=== PATIENT | male | born 1955 | race African-American/Black ===

== ENCOUNTER 2016-07-29 11:34 | Inpatient (IN) | payer SELFPAY ==
[~2016-07-29] VITALS: Ht 175.3 cm; Wt 81.6 kg
[2016-07-29] VITALS (8 sets, daily range): BP systolic 100–135; BP diastolic 42–79
--- NOTE | 2016-07-29 11:49 | Emergency Room Report ---
History of Present Illness General Chief Complaint: Seizure Source: Patient, EMS Present Illness HPI Patient just with reports of seizure activity He reports a loss when he had has been several months ago Patient is on lamictal This was witnessed by family patient lives at home with daughter At this time denies any headache denies any chest pressures of breath denies any back or flank pain Patient reports that he was drinking heavily last night Denies any other vomiting or diarrhea Denies any focal weakness Allergies: Coded Allergies: No Known Allergies (Unverified , 07/29/16) Patient History Past Medical History: see triage record Pertinent Family History: none Reviewed Nursing Documentation: PMH: Agreed, PSxH: Agreed Nursing Documentation-PMH Past Medical History: No History, Except For Hx Seizures: Yes Review of Systems All Other Systems: negative except mentioned in HPI Physical Exam Vital Signs Date Time Temp Pulse Resp B/P Pulse Ox O2 Delivery O2 Flow Rate FiO2 07/29/16 11:32 98.1 92 15 122/79 98 Room Air Sp02 EP Interpretation: reviewed, normal General Appearance: well appearing, no apparent distress Head: normocephalic, atraumatic Eyes: bilateral eye EOMI, bilateral eye PERRL ENT: hearing grossly normal, normal pharynx, TMs + canals normal, uvula midline , other - Small bites on the right aspect of the tongue Neck: full range of motion, supple, no meningismus, no bony tend Respiratory: lungs clear, normal breath sounds, no rhonchi, no respiratory distress, no retraction, no accessory muscle use Cardiovascular #1: normal peripheral pulses, regular rate, rhythm, no edema, no gallop, no JVD, no murmur Gastrointestinal: normal bowel sounds, non tender, soft, non-distended, no guarding, no hernia, no pulsatile mass, no rebound, hepatomegaly Genitourinary: no CVA tenderness Musculoskeletal: normal inspection Neurologic: oriented x3, responsive, clay miner III-XII nml as tested, motor strength/ tone normal, sensory intact Psychiatric: mood/affect normal Skin: normal color, no rash, warm/dry, palpation normal Lymphatic: normal inspection, no adenopathy Medical Decision Making Diagnostic Impression: Primary Impression: Epileptic seizure, generalized ER Course Multiple differentials including but not limited to, intracranial, metabolic, infectious pathology entertained Patient had baseline blood work initiated Patient is cocaine positive While the patient was here he also had another seizure activity given the multiple seizures the patient was provided with Ativan here and requires further inpatient care Labs Test 07/29/16 11:35 White Blood Count 10.1 K/UL (4.8-10.8) Red Blood Count 5.01 M/UL (4.70-6.10) Hemoglobin 14.9 G/DL (14.2-18.0) Hematocrit 45.8 % (42.0-52.0) Mean Corpuscular Volume 91 FL (80-99) Mean Corpuscular Hemoglobin 29.8 PG (27.0-31.0) Mean Corpuscular Hemoglobin Concent 32.6 G/DL (32.0-36.0) Red Cell Distribution Width 13.0 % (11.6-14.8) Platelet Count 304 K/UL (150-450) Mean Platelet Volume 7.0 FL (6.5-10.1) Neutrophils (%) (Auto) 75.6 % (45.0-75.0) Lymphocytes (%) (Auto) 13.2 % (20.0-45.0) Monocytes (%) (Auto) 9.5 % (1.0-10.0) Eosinophils (%) (Auto) 0.9 % (0.0-3.0) Basophils (%) (Auto) 0.8 % (0.0-2.0) Sodium Level 141 mEQ/L (135-145) Potassium Level 4.0 mEQ/L (3.4-4.9) Chloride Level 97 mEQ/L (98-107) Carbon Dioxide Level 21 mEQ/L (20-30) Anion Gap 23 (5-15) Blood Urea Nitrogen 13 mg/dL (7-23) Creatinine 1.3 mg/dL (0.7-1.2) Estimat Glomerular Filtration Rate > 60 mL/min (>60) Glucose Level 92 mg/dL (74-106) Calcium Level 9.3 mg/dL (8.6-10.2) Total Bilirubin 0.3 mg/dL (0.0-1.2) Aspartate Amino Transf (AST/SGOT) 37 U/L (5-40) Alanine Aminotransferase (ALT/SGPT) 38 U/L (3-41) Alkaline Phosphatase 52 U/L (40-129) Total Protein 7.1 g/dL (6.6-8.7) Albumin 4.1 g/dL (3.5-5.2) Globulin 3.0 g/dL Albumin/Globulin Ratio 1.3 (1.0-2.7) Salicylates Level < 1 mg/dL (10-30) Urine Opiates Screen Negative (NEGATIVE) Acetaminophen Level < 10 ug/mL (10-30) Urine Barbiturates Screen Negative (NEGATIVE) Phencyclidine (PCP) Screen Negative (NEGATIVE) Urine Amphetamines Screen Negative (NEGATIVE) Urine Benzodiazepines Screen Negative (NEGATIVE) Urine Cocaine Screen Positive (NEGATIVE) Urine Marijuana (THC) Screen Negative (NEGATIVE) Serum Alcohol < 10 mg/dL Rhythm Strip Diag. Results EP Interpretation: yes Rate: 76 Rhythm: NSR, no PVC's, no ectopy Chest X-Ray Diagnostic Results EP Interpretation: Yes Findings: no consolidation, no effusion, no pneumothorax Number of Views: 1 CT/MRI/US Diagnostic Results CT/MRI/US Diagnostic Results : Impression CT head no acute disease Last Vital Signs Date Time Temp Pulse Resp B/P Pulse Ox O2 Delivery O2 Flow Rate FiO2 07/29/16 11:45 98.1 97 15 122/79 98 Room Air Status: improved Disposition: ADMITTED INPATIENT Condition: Serious LEA LUBIN D.O. July 29, 2016 11:49
[2016-07-29 12:02] LABS: BASOPHILS % (AUTO) 0.8 % (0.0-2.0); EOSINOPHILS % (AUTO) 0.9 % (0.0-3.0); LYMPHOCYTES % (AUTO) 13.2 % (20.0-45.0); MEAN CORPUSCULAR HEMOGLOBIN 29.8 PG (27.0-31.0); MEAN CORPUSCULAR HGB CONC 32.6 G/DL (32.0-36.0); MEAN CORPUSCULAR VOLUME 91 FL (80-99); MONOCYTES % (AUTO) 9.5 % (1.0-10.0); NEUTROPHILS % (AUTO) 75.6 % (45.0-75.0); PLATELET COUNT 304 K/UL (150-450); RED BLOOD COUNT 5.01 M/UL (4.70-6.10); WHITE BLOOD COUNT 10.1 K/UL (4.8-10.8)
[2016-07-29 12:12] LABS: ACETAMINOPHEN < 10 ug/mL (10-30); ALANINE AMINOTRANSFERASE 38 U/L (3-41); ALBUMIN/GLOBULIN RATIO 1.3 (1.0-2.7); ALCOHOL < 10 mg/dL; ANION GAP 23 (5-15); ASPARTATE AMINO TRANSFERASE 37 U/L (5-40); CALCIUM 9.3 mg/dL (8.6-10.2); CARBON DIOXIDE 21 mEQ/L (20-30); CHLORIDE 97 mEQ/L (98-107); CREATININE 1.3 mg/dL (0.7-1.2); GLOMERULAR FILTRATION RATE > 60 mL/min (>60); HEMOLYSIS 13; SODIUM 141 mEQ/L (135-145); TOTAL PROTEIN 7.1 g/dL (6.6-8.7)
--- NOTE | 2016-07-29 12:27 | Diagnostic Imaging Report ---
Indication: Seizure Technique: Contiguous 5 mm thick transaxial imaging of the head obtained in a Siemens Sensation [address] scanner. Soft tissue and bone windows generated. Total Dose length Product (DLP): [address] Dose Index Volume (CTDIvol): 70.38 mGy Comparison: none Findings: There is mild prominence of the ventricles, basal cisterns, and cerebral sulci consistent with atrophy. Mild, nonspecific, white matter hypoattenuation is noted throughout the brain consistent with chronic small vessel disease. There is no midline shift, edema, acute hemorrhage, mass effect, or abnormal extra-axial fluid collections. Bones and extra osseous soft tissues are unremarkable. Impression: No acute intracranial bleed, mass effect or edema. Mild atrophy of the brain. Nonspecific white matter hypoattenuation probably due to chronic small vessel disease. The CT scanner at [facility] is accredited by the [employer] and the scans are performed using protocols designed to limit radiation exposure to as low as reasonably achievable to attain images of sufficient resolution adequate for diagnostic evaluation.
[2016-07-29] MEDS ORDERED: LORazepam Inj 2mg/ml 1ml IV ONE (12:30)
[2016-07-29] MEDS ORDERED: LORazepam Inj 2mg/ml 1ml ONE (12:32)
[2016-07-29] MEDS ORDERED: LAMICTAL200 MG ORAL (13:02)
[2016-07-29] MEDS ORDERED: LEVETIRACE500 MG/51 PO (13:05)
--- NOTE | 2016-07-29 13:05 | Diagnostic Imaging Report ---
Indication: Chest Pain Comparison: None A single view chest radiograph was obtained. Findings: Cardiomediastinal appearance is within normal limits for age. Pulmonary vascularity is appropriate. The diaphragmatic contour is smooth and costophrenic angles are sharp. No pleural effusions are identified. The bones are unremarkable. Impression: No acute findings
[2016-07-29] MEDS ORDERED: LORazepam Inj 2mg/ml 1ml IV PRN (17:15)
[2016-07-29] MEDS: Heparin 5000 units/ml inj SUBQ SCH (20:26)
[2016-07-30 03:59] VITALS: BP 115/74
[2016-07-30 08:00] VITALS: BP 117/72
[2016-07-30] MEDS: Heparin 5000 units/ml inj SUBQ SCH ×2 (08:08→21:47)
[2016-07-30 08:43] LABS: BASOPHILS % (AUTO) 0.7 % (0.0-2.0); EOSINOPHILS % (AUTO) 1.6 % (0.0-3.0); LYMPHOCYTES % (AUTO) 29.7 % (20.0-45.0); MEAN CORPUSCULAR HEMOGLOBIN 30.1 PG (27.0-31.0); MEAN CORPUSCULAR HGB CONC 32.8 G/DL (32.0-36.0); MEAN CORPUSCULAR VOLUME 92 FL (80-99); MONOCYTES % (AUTO) 7.4 % (1.0-10.0); NEUTROPHILS % (AUTO) 60.7 % (45.0-75.0); PLATELET COUNT 251 K/UL (150-450); RED BLOOD COUNT 4.63 M/UL (4.70-6.10); RED CELL DISTRIBUTION WIDTH 12.9 % (11.6-14.8); WHITE BLOOD COUNT 7.8 K/UL (4.8-10.8)
[2016-07-30 08:55] LABS: ANION GAP 12 (5-15); CALCIUM 8.7 mg/dL (8.6-10.2); CARBON DIOXIDE 27 mEQ/L (20-30); CHLORIDE 101 mEQ/L (98-107); CREATININE 1.1 mg/dL (0.7-1.2); GLOMERULAR FILTRATION RATE > 60 mL/min (>60); HEMOLYSIS 4; POTASSIUM 3.8 mEQ/L (3.4-4.9); SODIUM 140 mEQ/L (135-145)
--- NOTE | 2016-07-30 09:39 | History & Physical ---
History and Physical History & Physicial seen and examined. Dictation completed. Jamil Auguste MD July 30, 2016 09:39
[2016-07-30] MEDS ORDERED: chlordiazePOXIDE 25mg Cap ORAL PRN (09:45)
[2016-07-30] MEDS ORDERED: Multivitamin w/Minerals tab ORAL SCH (10:30)
[2016-07-30 12:00] VITALS: BP 116/69
[2016-07-30] MEDS: Folic Acid 1 MG, Magnesium Sulfate 2,000 MG, Multivitamin - 12 Injection 10 ML in NS w/... IV SCH (12:08)
[2016-07-30] MEDS: Thiamine 100mg in D5W 55ml IVPB SCH (12:09)
--- NOTE | 2016-07-30 14:12 | Neurology Progress Note ---
Objective Physical Exam Last Vital Signs Date Time Temp Pulse Resp B/P Pulse Ox O2 Delivery O2 Flow Rate FiO2 07/30/16 12:00 98.1 65 20 116/69 98 Room Air 07/29/16 16:23 2.0 Laboratory Tests Test 07/30/16 06:26 White Blood Count 7.8 K/UL (4.8-10.8) Red Blood Count 4.63 M/UL (4.70-6.10) L Hemoglobin 13.9 G/DL (14.2-18.0) L Hematocrit 42.4 % (42.0-52.0) Mean Corpuscular Volume 92 FL (80-99) Mean Corpuscular Hemoglobin 30.1 PG (27.0-31.0) Mean Corpuscular Hemoglobin Concent 32.8 G/DL (32.0-36.0) Red Cell Distribution Width 12.9 % (11.6-14.8) Platelet Count 251 K/UL (150-450) Mean Platelet Volume 7.0 FL (6.5-10.1) Neutrophils (%) (Auto) 60.7 % (45.0-75.0) Lymphocytes (%) (Auto) 29.7 % (20.0-45.0) Monocytes (%) (Auto) 7.4 % (1.0-10.0) Eosinophils (%) (Auto) 1.6 % (0.0-3.0) Basophils (%) (Auto) 0.7 % (0.0-2.0) Sodium Level 140 mEQ/L (135-145) Potassium Level 3.8 mEQ/L (3.4-4.9) Chloride Level 101 mEQ/L (98-107) Carbon Dioxide Level 27 mEQ/L (20-30) Anion Gap 12 (5-15) Blood Urea Nitrogen 12 mg/dL (7-23) Creatinine 1.1 mg/dL (0.7-1.2) Estimat Glomerular Filtration Rate > 60 mL/min (>60) Glucose Level 92 mg/dL (74-106) Calcium Level 8.7 mg/dL (8.6-10.2) Impression/Recommendations Problems: (1) ETON withdrawal seizure disorder (2) ETOH abuse (3) Substance abuse Status: unchanged Recommendations #[id number] THANG JOSÉ July 30, 2016 14:12
[2016-07-30] MEDS ORDERED: Tubing IV Secondary IV ONE (15:49)
[2016-07-30 16:00] VITALS: BP 119/79
--- NOTE | 2016-07-30 17:19 | History and Physical Report ---
DATE OF ADMISSION: 07/29/2016 SOURCE OF INFORMATION: Patient and EMR. HISTORY OF PRESENT ILLNESS: The patient is a 61-year-old, alcoholic male, presented with weakness and episodes of general seizure at home. Transferred via EMS 911 call. Initial evaluation in the emergency room showed normal unremarkable vital signs associated with the unremarkable findings on chest x-ray and a CT scan of the brain. He was admitted for additional evaluation. The patient is status post similar episode in [facility] a couple of weeks ago, status post reportedly unremarkable workup. The patient denied any episodes of loss of control over the urination or bowel movements. REVIEW OF SYSTEMS: Ten points components of the review of systems was done. Pertinent positive or negative are mentioned in the HPI. PAST SURGICAL HISTORY: Denies. SOCIAL HISTORY: Positive for taking 20 pack per day of beer for the last 10 to 20 years. Positive for 20-pack per year of tobacco smoking. Currently active user. FAMILY HISTORY: Reviewed and noncontributory. PAST MEDICAL HISTORY: Alcoholism, alcohol-related seizure episodes, and anxiety. HOME MEDICATIONS: Including reported Lamictal and Keppra. PHYSICAL EXAMINATION: VITAL SIGNS: Blood pressure 120/70, temperature 98.2, pulse oximetry 98% on room air, and respiratory rate 18. HEAD AND NECK: Atraumatic and normocephalic. CHEST: Clear to auscultation. HEART: S1 and S2. Regular rate and rhythm. ABDOMEN: Soft. No organomegaly. MUSCULOSKELETAL: No gross focal motor deficit. LABORATORY DATA: Lab results dated 07/30/2016 shows WBC 7.8, hemoglobin 13.9, and platelets 215,000. Sodium 140, potassium 3.8, BUN 12, and creatinine 1.1. Urine tested positive for cocaine. ASSESSMENT: 1. Alcohol withdrawal seizure. 2. Substance abuse, positive for cocaine. 3. Anxiety/depression. 4. Gastrointestinal and deep vein thrombosis prophylaxes. PLAN OF CARE: Neurology, Dr. Nuno has been notified. The optimization of medication for the alcohol withdrawal seizure per Neurology. He will be a candidate for follow up outpatient after completion of workup by neurologist. Jamil Auguste M.D. DR: JOHANA JOB#: [id number] CC:
--- NOTE | 2016-07-30 17:34 | Cardiology Report ---
APPROVED REPORT EKG Measurement Heart [id number] Normal sinus rhythm Incomplete right bundle branch block Prolonged QT Abnormal ECG
[2016-07-30 20:19] VITALS: BP 118/63
--- NOTE | 2016-07-30 21:18 | Consultation ---
DATE OF CONSULTATION: 07/30/2016 NEUROLOGICAL CONSULTATION: REFERRING PHYSICIAN: Jamil Auguste M.D. HISTORY OF PRESENT ILLNESS: The patient is a 61-year-old seen in neurological consultation to evaluate the recurrent seizure episodes. The patient informed me that few months ago, he had two alcohol withdrawal seizures. According to medical records, he was recommended to start on Lamictal although the patient now stated that he is not taking any medications. The patient indicated the last drink he had the day prior to admission. Yesterday, he was brought after having a seizure activity witnessed by his family members. He was brought to emergency room reporting that he was drinking heavily last night. His vital signs were stable. He was afebrile. While under observation, the patient had another episode of generalized seizure, thus he was given Ativan for further sedation. His chest x-ray was negative. His EKG, normal sinus rhythm. He had a CAT scan of the brain, thus revealed nonspecific white matter hypoattenuation due to chronic small vessel disease. There is no acute intracranial abnormality. Lab work included normal CBC. Chemistry panel with anion gap of 23 and creatinine 1.3. Urine toxicology panel, serum alcohol less than 10, positive cocaine. Following admission, the patient was placed on Ativan as needed as needed, Keppra 500 mg twice a day, Librium 25 mg q.6 h. as needed, thiamine 100 mg, and folic acid. ALLERGIES: None reported. PAST MEDICAL HISTORY: The patient denies any major medical problems. 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 He had never been treated for his alcohol abuse, but [facility], he was offered to undergo detoxification to which he agreed and now pending to start the program. The patient lives alone although his daughter helps him out and he has a girlfriend who helps him out. FAMILY HISTORY: Noncontributory. REVIEW OF SYSTEMS: Painful bitten tongue. No headache. No dizziness. No chest pain. No palpitations. No respiratory problems. Denies abdominal pain or discomfort. PHYSICAL EXAMINATION: GENERAL: Well developed, somewhat with a flushed face. VITAL SIGNS: Now are stable. Blood pressure is 116/69, afebrile. HEENT: Head normocephalic. No evidence of trauma. Eyes, ears, and throat are clear. Bitten tongue noted. MUSCULOSKELETAL: Unremarkable. There is no deformities. Peripheral pulses 1+, symmetric. MENTAL STATUS: Alert and oriented x3. Speech is fluent with no evidence of aphasia or apraxia. Cognitive function normal. CRANIAL NERVES II: Pupils both responding to light and accommodation. Extraocular movement is intact. No nystagmus. CRANIAL NERVE V: Normal corneal responses. CRANIAL NERVE VII: No facial asymmetry. CRANIAL NERVE VIII: Grossly normal hearing. CRANIAL NERVES IX THROUGH XII: Tongue is in midline. Symmetric palate elevation. MOTOR EXAMINATION: Motor examination revealed normal muscle tone. Strength 5/5 in all extremities. No involuntary movement. Deep reflexes 1+ symmetric with downgoing toes on both sides. Sensory exam normal to pinprick and light touch. Gait is stable. IMPRESSION: 1. Alcohol abuse, with withdrawal seizure activity. 2. Substance abuse including cocaine. RECOMMENDATIONS: Continue with a magnesium oxide/folate, thiamine supplements. Continue with Librium as needed. Maintain on Keppra 500 mg b.i.d. with need for continued treatment to be deferred to outpatient Neurology familiar with the patient's previous workup. The patient recommended to join and follow up for rehabilitation detoxification. Thank you for allowing me to see this interesting patient in neurological consultation. Royce Nuno M.D. DR: DAMIEN JOB#: [id number] CC:
[2016-07-30 23:51] VITALS: BP 111/60
[2016-07-31 03:55] VITALS: BP 120/75
[2016-07-31 07:14] LABS: BASOPHILS % (AUTO) 0.7 % (0.0-2.0); EOSINOPHILS % (AUTO) 2.5 % (0.0-3.0); LYMPHOCYTES % (AUTO) 34.4 % (20.0-45.0); MEAN CORPUSCULAR HEMOGLOBIN 30.1 PG (27.0-31.0); MEAN CORPUSCULAR HGB CONC 32.6 G/DL (32.0-36.0); MEAN CORPUSCULAR VOLUME 92 FL (80-99); MEAN PLATELET VOLUME 7.5 FL (6.5-10.1); MONOCYTES % (AUTO) 11.1 % (1.0-10.0); NEUTROPHILS % (AUTO) 51.4 % (45.0-75.0); PLATELET COUNT 246 K/UL (150-450); RED BLOOD COUNT 4.63 M/UL (4.70-6.10); RED CELL DISTRIBUTION WIDTH 13.2 % (11.6-14.8); WHITE BLOOD COUNT 5.6 K/UL (4.8-10.8)
[2016-07-31 07:44] LABS: ALANINE AMINOTRANSFERASE 31 U/L (3-41); ALBUMIN/GLOBULIN RATIO 1.2 (1.0-2.7); ANION GAP 14 (5-15); ASPARTATE AMINO TRANSFERASE 30 U/L (5-40); CALCIUM 8.5 mg/dL (8.6-10.2); CARBON DIOXIDE 25 mEQ/L (20-30); CHLORIDE 104 mEQ/L (98-107); CREATININE 1.3 mg/dL (0.7-1.2); GLOMERULAR FILTRATION RATE > 60 mL/min (>60); HEMOLYSIS 4; POTASSIUM 4.2 mEQ/L (3.4-4.9); SODIUM 143 mEQ/L (135-145); TOTAL PROTEIN 6.3 g/dL (6.6-8.7)
[2016-07-31 08:31] VITALS: BP 128/80
[2016-07-31] MEDS: Heparin 5000 units/ml inj SUBQ SCH (09:15)
[2016-07-31] MEDS: Folic Acid 1 MG, Magnesium Sulfate 2,000 MG, Multivitamin - 12 Injection 10 ML in NS w/... IV SCH (11:28)
[2016-07-31 11:40] VITALS: BP 123/84
[2016-07-31] MEDS: Thiamine 100mg in D5W 55ml IVPB SCH (12:00)
--- NOTE | 2016-07-31 12:27 | General Progress Note ---
Assessment/Plan Status: stable Assessment/Plan 1. Alcohol withdrawal seizure. 2. Substance abuse, positive for cocaine. 3. Anxiety/depression. 4. Gastrointestinal and deep vein thrombosis prophylaxes. Plan: Ok to discharge home with outpatient followup Subjective ROS Limited/Unobtainable: No Constitutional: Reports: no symptoms HEENT: Reports: no symptoms Allergies: Coded Allergies: No Known Allergies (Unverified , 07/29/16) Objective Last 24 Hour Vital Signs Date Time Temp Pulse Resp B/P Pulse Ox O2 Delivery O2 Flow Rate FiO2 07/31/16 11:40 98.1 63 18 123/84 98 Room Air 07/31/16 08:31 97.5 59 18 128/80 97 Room Air 07/31/16 04:00 71 07/31/16 03:55 98.6 80 20 120/75 97 Room Air 07/31/16 00:00 63 07/30/16 23:51 98.8 75 20 111/60 98 Room Air 07/30/16 20:19 98.3 74 21 118/63 94 Room Air 07/30/16 20:00 80 07/30/16 16:00 97.5 64 20 119/79 98 Room Air 07/30/16 16:00 61 Intake and Output 07/30/16 07/31/16 19:00 07:00 Intake Total 1482 ml 475 ml Output Total 1200 ml Balance 282 ml 475 ml Intake Oral 620 ml IV Total 862 ml 475 ml Output Urine Total 1200 ml # Voids 4 2 Laboratory Tests 07/31/16 04:40: White Blood Count 5.6, Red Blood Count 4.63L, Hemoglobin 13.9L, Hematocrit 42.8 , Mean Corpuscular Volume 92, Mean Corpuscular Hemoglobin 30.1, Mean Corpuscular Hemoglobin Concent 32.6, Red Cell Distribution Width 13.2, Platelet Count 246, Mean Platelet Volume 7.5, Neutrophils (%) (Auto) 51.4, Lymphocytes (% ) (Auto) 34.4, Monocytes (%) (Auto) 11.1H, Eosinophils (%) (Auto) 2.5, Basophils (%) (Auto) 0.7, Sodium Level 143, Potassium Level 4.2, Chloride Level 104, Carbon Dioxide Level 25, Anion Gap 14, Blood Urea Nitrogen 16, Creatinine 1.3H, Estimat Glomerular Filtration Rate > 60, Glucose Level 105, Calcium Level 8.5L, Total Bilirubin 0.3, Aspartate Amino Transf (AST/SGOT) 30, Alanine Aminotransferase (ALT/SGPT) 31, Alkaline Phosphatase 48, Total Protein 6.3L, Albumin 3.5, Globulin 2.8, Albumin/Globulin Ratio 1.2 Height (Feet): 5 Height (Inches): 9.00 Weight (Pounds): 180 General Appearance: no apparent distress EENT: PERRL/EOMI Neck: non-tender Cardiovascular: normal rate Respiratory/Chest: lungs clear Abdomen: soft Extremities: non-tender Neurologic: health data analyst II-XII grossly normal Jamil Auguste MD July 31, 2016 12:26
[2016-08-02] MEDS ORDERED: KEPPRA500 M4 ORAL (10:01)
--- NOTE | 2016-08-02 10:06 | Discharge Summary ---
Discharge Summary Hospital Course Date of Admission July 29, 2016 at 13:05 Date of Discharge July 31, 2016 at 14:30 Admitting Diagnosis INTERACTABLE SEIZURE HPI Nehal Cervantes is a 61 year old male who was admitted on July 29, 2016 at 13:05 for Interactable Seizure Hospital Course DC SUMMARY #[id number] Discharge Medications New Medications: Levetiracetam (Keppra) 500 Mg Tablet 500 MG ORAL EVERY 12 HOURS, #60 TAB 0 Refills Discharge Condition Upon Discharge: stable Discharge Disposition Patient was discharged to Home () Discharge Diagnoses: Discharge Instructions Discharge Instructions Special Instructions I have been assigned to complete a D/C Summary on this account. I was not involved in the patient management Aarti Arevalo NP (Vanchtein) August 02, 2016 10:06
--- NOTE | 2016-08-03 02:49 | Discharge Summary 2 SIG ---
DATE OF ADMISSION: 07/29/2016 DATE OF DISCHARGE: 07/31/2016 REASON FOR ADMISSION: 61-year-old male presented to the emergency room after having a generalized seizure , which was apparently brought in by consumption of alcohol. The patient reported that few months ago, he had two alcohol withdrawal seizures as well. At that time, he was supposed to be started on Lamictal, however, the patient stated he never took this medication. The patient reported to drink heavily a day prior to having a seizure. The seizure was witnessed by his family member. The patient brought to the emergency room for evaluation. Vital signs were stable. He was afebrile. EKG showed normal sinus rhythm. While under observation, the patient had another episode of generalized seizure. He was given Ativan in ED.No further seizure activity. Chest x-ray revealed no acute cardiopulmonary disease. CT of the head revealed no acute cerebrovascular pathology, however, it revealed nonspecific white matter hypoattenuation due to chronic small vessel disease. The patient was admitted for further management. ADMITTING DIAGNOSIS: Alcoholic withdrawal seizures. Alcohol abuse HOSPITAL COURSE: The patient admitted. Neurology consult was requested. The patient started on IV fluids with magnesium, folic acid, and thiamine supplement along with multivitamin. Librium provided as needed. The patient started on Keppra twice a day and Ativan as needed. Neurologist seen and evaluated the patient. Neurologist recommended continue Keppra and continue present folate and thiamine . He deferred further treatment to outpatient Neurologist who is familiar with the patient's previous workup. Urine toxicology screen was positive for cocaine. The patient was counseled on abstinence from street drugs including cocaine. The patient was counseled to stop drinking. DVT and GI prophylaxis provided. The patient was stable for discharge. DISCHARGE DIAGNOSES: 1. Alcohol abuse. 2. Alcohol withdrawal seizure. 3. Substance abuse (cocaine). 4. Anxiety/depression. DISCHARGE MEDICATIONS: See medication reconciliation list. DISCHARGE INSTRUCTIONS: The patient discharged home. Follow up with the primary medical doctor and neurologist for further optimization of anticonvulsive medication regimen. The patient was encouraged to join Alcoholic Anonymous and counseled on abstinence from alcohol and street drugs, including cocaine. Jamil Auguste M.D. I have been assigned to dictate discharge summary on this account and I was not involved in the patient's management. Aarti Cageviktoria NSushmaPSushma DR: Addie JOB#: [id number] CC: ELY
== END 2016-07-31 14:30 | disposition home or self-care (01) | DRG 897 ==
LOC: ENRESERVTM → ENRESERVDT → EDBD 11:34 → EMR 11:55 → 2E 13:05 → EDBEDREQ 13:22 → 2E 17:26
DX: F10.239 Alcohol dependence with withdrawal, unspecified (principal); F14.10 Cocaine abuse, uncomplicated; R56.9 Unspecified convulsions; F41.8 Other specified anxiety disorders
CPT/HCPCS: 36415; 70450; 71010; 80048; 80053; 80299; 80300; 80329; 85025; 93005

== ENCOUNTER 2016-12-26 15:24 | Inpatient (IN) | payer OTHER ==
[~2016-12-26] VITALS: Ht 177.8 cm; Wt 93.0 kg
[~2016-12-26 15:24] MED LIST: KEPPRA500 M4 ORAL; LAMICTAL200 MG ORAL; LEVETIRACE500 MG/51 PO
[2016-12-26] MEDS ORDERED: levETIRAcetam 1,000mg/NS100ml 100 ML IVPB ONE (15:45)
--- NOTE | 2016-12-26 15:52 | Emergency Room Report ---
History of Present Illness General Chief Complaint: Seizure Source: Medical Record, EMS Present Illness HPI [id number] BIBEMS for ?seizure, 20 sec in duration. Witnessed by . Patient had "not been home for days" and endorsed cocaine use and ETOH to EMS noted pinpoint pupils and "low respiratory rate" on scene, gave narcan with alleged "good response." Patient intermittently combative in ED but otherwise asleep vs possible post- ictal Admitted in July for similar episode Was never compliant with anti-seizure meds +cocaine in past Heavy drinker Was seen by Neuro in [place], advised Sara at the time Allergies: Coded Allergies: No Known Allergies (Unverified , 07/29/16) Patient History Past Medical History: old chart reviewed, unable to obtain Past Surgical History: unable to obtain Pertinent Family History: unable to obtain Social History: Reports: alcohol use, drug use Immunizations: UTD Reviewed Nursing Documentation: PMH: Agreed, PSxH: Agreed Nursing Documentation-PMH Past Medical History: No History, Except For Hx Neurological Problems: Yes Hx Seizures: Yes Review of Systems All Other Systems: limited - AMS Physical Exam Vital Signs Date Time Temp Pulse Resp B/P (MAP) Pulse Ox O2 Delivery O2 Flow Rate FiO2 12/26/16 15:22 99.1 100 15 125/64 96 Room Air Sp02 EP Interpretation: reviewed, normal General Appearance: normal inspection, well appearing, no apparent distress, alert, non-toxic, other - Intermittently combative when aroused. Otherwise sleeping, Postictal Head: normocephalic, atraumatic Eyes: bilateral eye other - Mid-dilation, sluggish ENT: normal ENT inspection, hearing grossly normal, normal pharynx, no angioedema, normal voice Neck: normal inspection, full range of motion, supple, no bony tend Respiratory: normal inspection, lungs clear, normal breath sounds, no respiratory distress, no retraction, no wheezing Cardiovascular #1: regular rate, rhythm, no edema Gastrointestinal: normal inspection, normal bowel sounds, non tender, soft, no guarding, no hernia Genitourinary: no CVA tenderness Musculoskeletal: normal inspection, back normal, normal range of motion, Melva' s Sign negative Neurologic: normal inspection, alert, responsive, data integrity analyst III-XII nml as tested, motor strength/tone normal, speech normal Psychiatric: normal inspection, judgement/insight normal, mood/affect normal Skin: normal inspection, normal color, no rash Medical Decision Making Diagnostic Impression: Primary Impression: Seizure disorder Additional Impressions: Substance abuse Altered mental status Qualified Codes: R41.82 - Altered mental status, unspecified Alcohol withdrawal seizure Qualified Codes: F10.230 - Alcohol dependence with withdrawal, uncomplicated ER Course patient appears altered currently in ED, ?post-ictal Vitals are stable Afebrile Unknown if took opiates as well. Does have + history of cocaine. Urine Tox pending. Labs: Mild leuks. H&H stable. Lactate elevated, supports history of seizures. ETOH level also 0. ?ETOH- withdrawal seizure. had CT head in july - no mass/tumor, unlikely BERNADETTE as source of seizure Was loaded with Keppra Intermittently combative in ED but vitals stable. Was also given IV ativan for seizures patent airway Endorsed to Dr Henry for tele admission at 525pm Repeat lactate pending after hydration at time of admission EKG Diagnostic Results Rate: normal Rhythm: other - incomplete RBBB ST Segments: no acute changes ASA given to the pt in ED: No Rhythm Strip Diag. Results EP Interpretation: yes Rate: 83 Rhythm: NSR, no PVC's, no ectopy Chest X-Ray Diagnostic Results Chest X-Ray Diagnostic Results : Chest X-Ray Ordered: Yes # of Views/Limited/Complete: 1 View Indication: Other - AMS EP Interpretation: Yes Interpretation: no consolidation, no effusion, no pneumothorax, no acute cardiopulmonary disease Impression: No acute disease Electronically Signed by: Dr Juan Falcon MD Last Vital Signs Date Time Temp Pulse Resp B/P (MAP) Pulse Ox O2 Delivery O2 Flow Rate FiO2 12/26/16 15:22 99.1 100 15 125/64 96 Room Air Status: improved Disposition: ADMITTED INPATIENT Condition: Serious JUAN FALCON M.D. Dec 26, 2016 15:52
[2016-12-26 16:28] LABS: BASOPHILS % (AUTO) 0.8 % (0.0-2.0); EOSINOPHILS % (AUTO) 2.8 % (0.0-3.0); LYMPHOCYTES % (AUTO) 19.8 % (20.0-45.0); MEAN CORPUSCULAR HEMOGLOBIN 29.8 PG (27.0-31.0); MEAN CORPUSCULAR HGB CONC 30.7 G/DL (32.0-36.0); MEAN CORPUSCULAR VOLUME 97 FL (80-99); MEAN PLATELET VOLUME 7.2 FL (6.5-10.1); NEUTROPHILS % (AUTO) 67.5 % (45.0-75.0); PLATELET COUNT 228 K/UL (150-450); RED BLOOD COUNT 4.63 M/UL (4.70-6.10); RED CELL DISTRIBUTION WIDTH 12.5 % (11.6-14.8); WHITE BLOOD COUNT 11.4 K/UL (4.8-10.8)
[2016-12-26 16:53] LABS: ACETAMINOPHEN < 10 ug/mL (10-30); ALANINE AMINOTRANSFERASE 27 U/L (3-41); ALBUMIN/GLOBULIN RATIO 1.5 (1.0-2.7); ALCOHOL < 10 mg/dL; ANION GAP 24 (5-15); ASPARTATE AMINO TRANSFERASE 44 U/L (5-40); CALCIUM 9.5 mg/dL (8.6-10.2); CARBON DIOXIDE 20 mEQ/L (20-30); CHLORIDE 95 mEQ/L (98-107); CREATININE 1.5 mg/dL (0.7-1.2); GLOMERULAR FILTRATION RATE 57.4 mL/min (>60); HEMOLYSIS 14; POTASSIUM 3.6 mEQ/L (3.4-4.9); SODIUM 139 mEQ/L (135-145); TOTAL PROTEIN 7.5 g/dL (6.6-8.7)
[2016-12-26 16:56] LABS: REFLEX LACTIC ACID YES OR NO YES
[2016-12-26] MEDS ORDERED: LR 1000ml 1,000 ML IV STA (17:05)
[2016-12-26 17:25] VITALS: BP 136/70
[2016-12-26] MEDS ORDERED: LORazepam Inj 2mg/ml 1ml IV ONE (17:45)
[2016-12-26 18:30] VITALS: BP 127/83
[2016-12-26] MEDS ORDERED: chlordiazePOXIDE 25mg Cap ORAL PRN (18:45)
[2016-12-26] MEDS ORDERED: Mylanta II UD 30ml ORAL PRN (18:45)
[2016-12-26] MEDS ORDERED: Morphine Sulfate 2mg/ml Inj IVP PRN (18:45)
[2016-12-26] MEDS ORDERED: Zolpidem 5mg tab ORAL PRN (18:45)
[2016-12-26] MEDS ORDERED: LORazepam Inj 2mg/ml 1ml IV PRN (18:45)
[2016-12-26] MEDS ORDERED: Miralax 17gm pkt ORAL PRN (18:45)
[2016-12-26 20:00] VITALS: BP 118/66
[2016-12-26 20:46] VITALS: BP 134/76
[2016-12-26] MEDS: Heparin 5000 units/ml inj SUBQ SCH (21:34)
[2016-12-26] MEDS: Thiamine 100mg in D5W 55ml IVPB SCH (21:41)
[2016-12-26] MEDS: Folic Acid 1 MG, Magnesium Sulfate 2,000 MG, Multivitamin - 12 Injection 10 ML in NS w/... IV SCH (21:42)
[2016-12-27] VITALS: BP 127/76
[2016-12-27 04:00] VITALS: BP 129/77
[2016-12-27 08:00] VITALS: BP 114/78
[2016-12-27 08:14] LABS: BASOPHILS % (AUTO) 0.4 % (0.0-2.0); EOSINOPHILS % (AUTO) 3.3 % (0.0-3.0); LYMPHOCYTES % (AUTO) 26.1 % (20.0-45.0); MEAN CORPUSCULAR HEMOGLOBIN 31.9 PG (27.0-31.0); MEAN CORPUSCULAR HGB CONC 34.3 G/DL (32.0-36.0); MEAN CORPUSCULAR VOLUME 93 FL (80-99); MEAN PLATELET VOLUME 7.3 FL (6.5-10.1); MONOCYTES % (AUTO) 8.3 % (1.0-10.0); NEUTROPHILS % (AUTO) 61.8 % (45.0-75.0); PLATELET COUNT 220 K/UL (150-450); RED BLOOD COUNT 4.32 M/UL (4.70-6.10); RED CELL DISTRIBUTION WIDTH 11.9 % (11.6-14.8)
[2016-12-27 08:24] LABS: ALANINE AMINOTRANSFERASE 20 U/L (3-41); ALBUMIN/GLOBULIN RATIO 1.2 (1.0-2.7); ANION GAP 11 (5-15); ASPARTATE AMINO TRANSFERASE 36 U/L (5-40); CALCIUM 8.4 mg/dL (8.6-10.2); CARBON DIOXIDE 25 mEQ/L (20-30); CHLORIDE 103 mEQ/L (98-107); CREATININE 1.1 mg/dL (0.7-1.2); GLOMERULAR FILTRATION RATE > 60 mL/min (>60); HEMOLYSIS 3; POTASSIUM 3.7 mEQ/L (3.4-4.9); SODIUM 139 mEQ/L (135-145); TOTAL PROTEIN 6.4 g/dL (6.6-8.7)
[2016-12-27] MEDS ORDERED: Heparin 5000 units/ml inj SUBQ SCH (09:00)
[2016-12-27] MEDS: Heparin 5000 units/ml inj SUBQ SCH ×2 (09:09→21:07)
[2016-12-27] MEDS ORDERED: Flu Vaccine Quadrivalent 0.5ml IM ONE (10:00)
[2016-12-27] MEDS ORDERED: Pneumococcal Vaccine 25mcg/0.5ml IM ONE (10:00)
--- NOTE | 2016-12-27 10:50 | History and Physical ---
History of Present Illness General Date patient seen: Dec 26, 2016 Reason for Hospitalization: Seizure Present Illness HPI 61 with pmhx of ETOH and Cocaine abuse and ETOH related seizures brought in by paramedics with CC of seizures, 20 sec in duration. Witnessed by . EMS noted pinpoint pupils and "low respiratory rate" on scene, gave narcan with alleged "good response." Patient intermittently combative in ED but otherwise asleep vs possible post- ictal. Pt is admitted to telemetry for uncontrolled seizures. Allergies: Coded Allergies: No Known Allergies (Unverified , 07/29/16) Medication History Scheduled Lamotrigine (Lamictal), Unknown Dose ORAL DAILY, (Reported) Levetiracetam (Keppra), 500 MG ORAL EVERY 12 HOURS Patient History Healthcare decision maker Resuscitation status Full Code Advanced Directive on File Past Medical/Surgical History Past Medical/Surgical History: (1) Seizure disorder (2) Substance abuse (3) ETOH abuse Review of Systems All Other Systems: negative except mentioned in HPI Physical Exam General Appearance: WD/WN Lines, tubes and drains: peripheral, central line HEENT: normocephalic, atraumatic Neck: non-tender, normal alignment Respiratory/Chest: chest wall non-tender, lungs clear, no respiratory distress Cardiovascular/Chest: normal peripheral pulses, normal rate Abdomen: normal bowel sounds, non tender Genitourinary/Rectal: normal genital exam Extremities: normal range of motion, normal inspection Skin Exam: normal pigmentation Last 24 Hour Vital Signs Date Time Temp Pulse Resp B/P (MAP) Pulse Ox O2 Delivery O2 Flow Rate FiO2 12/27/16 08:00 97.9 62 22 114/78 96 Room Air 12/27/16 04:00 98.4 65 20 129/77 Room Air 12/27/16 04:00 72 12/27/16 00:00 98.0 64 20 127/76 95 Room Air 12/27/16 00:00 68 12/26/16 20:51 71 12/26/16 20:46 98.0 87 20 134/76 99 Room Air 12/26/16 20:46 87 20 134/76 99 Room Air 12/26/16 20:00 97.7 69 20 118/66 95 Room Air 12/26/16 18:30 98.4 82 19 127/83 97 Room Air 12/26/16 17:25 98.6 88 16 136/70 99 Room Air 12/26/16 15:30 100 15 Room Air 12/26/16 15:22 99.1 100 15 125/64 96 Room Air Intake and Output 12/27/16 12/28/16 19:00 07:00 Intake Total 300 ml Balance 300 ml Intake Oral 300 ml Laboratory Tests Test 12/26/16 15:45 12/26/16 15:50 12/26/16 16:55 12/26/16 17:17 White Blood Count 11.4 K/UL (4.8-10.8) H Red Blood Count 4.63 M/UL (4.70-6.10) L Hemoglobin 13.8 G/DL (14.2-18.0) L Hematocrit 44.8 % (42.0-52.0) Mean Corpuscular Volume 97 FL (80-99) Mean Corpuscular Hemoglobin 29.8 PG (27.0-31.0) Mean Corpuscular Hemoglobin Concent 30.7 G/DL (32.0-36.0) L Red Cell Distribution Width 12.5 % (11.6-14.8) Platelet Count 228 K/UL (150-450) Mean Platelet Volume 7.2 FL (6.5-10.1) Neutrophils (%) (Auto) 67.5 % (45.0-75.0) Lymphocytes (%) (Auto) 19.8 % (20.0-45.0) L Monocytes (%) (Auto) 9.0 % (1.0-10.0) Eosinophils (%) (Auto) 2.8 % (0.0-3.0) Basophils (%) (Auto) 0.8 % (0.0-2.0) Sodium Level 139 mEQ/L (135-145) Potassium Level 3.6 mEQ/L (3.4-4.9) Chloride Level 95 mEQ/L (98-107) L Carbon Dioxide Level 20 mEQ/L (20-30) Anion Gap 24 (5-15) H Blood Urea Nitrogen 12 mg/dL (7-23) Creatinine 1.5 mg/dL (0.7-1.2) H Estimat Glomerular Filtration Rate 57.4 mL/min (>60) Glucose Level 118 mg/dL (74-106) H Calcium Level 9.5 mg/dL (8.6-10.2) Total Bilirubin 0.7 mg/dL (0.0-1.2) Aspartate Amino Transf (AST/SGOT) 44 U/L (5-40) H Alanine Aminotransferase (ALT/SGPT) 27 U/L (3-41) Alkaline Phosphatase 48 U/L (40-129) Total Creatine Kinase 947 U/L (38-174) H Total Protein 7.5 g/dL (6.6-8.7) Albumin 4.5 g/dL (3.5-5.2) Globulin 3.0 g/dL Albumin/Globulin Ratio 1.5 (1.0-2.7) Salicylates Level < 1 mg/dL (10-30) L Acetaminophen Level < 10 ug/mL (10-30) L Serum Alcohol < 10 mg/dL Lactic Acid Level 11.60 mmol/L (0.66-2.22) H 3.00 mmol/L (0.66-2.22) H Urine Opiates Screen Negative (NEGATIVE) Urine Barbiturates Screen Negative (NEGATIVE) Phencyclidine (PCP) Screen Negative (NEGATIVE) Urine Amphetamines Screen Negative (NEGATIVE) Urine Benzodiazepines Screen Negative (NEGATIVE) Urine Cocaine Screen Positive (NEGATIVE) H Urine Marijuana (THC) Screen Negative (NEGATIVE) Test 12/27/16 07:25 White Blood Count 8.0 K/UL (4.8-10.8) Red Blood Count 4.32 M/UL (4.70-6.10) L Hemoglobin 13.8 G/DL (14.2-18.0) L Hematocrit 40.2 % (42.0-52.0) L Mean Corpuscular Volume 93 FL (80-99) Mean Corpuscular Hemoglobin 31.9 PG (27.0-31.0) H Mean Corpuscular Hemoglobin Concent 34.3 G/DL (32.0-36.0) Red Cell Distribution Width 11.9 % (11.6-14.8) Platelet Count 220 K/UL (150-450) Mean Platelet Volume 7.3 FL (6.5-10.1) Neutrophils (%) (Auto) 61.8 % (45.0-75.0) Lymphocytes (%) (Auto) 26.1 % (20.0-45.0) Monocytes (%) (Auto) 8.3 % (1.0-10.0) Eosinophils (%) (Auto) 3.3 % (0.0-3.0) H Basophils (%) (Auto) 0.4 % (0.0-2.0) Sodium Level 139 mEQ/L (135-145) Potassium Level 3.7 mEQ/L (3.4-4.9) Chloride Level 103 mEQ/L (98-107) Carbon Dioxide Level 25 mEQ/L (20-30) Anion Gap 11 (5-15) Blood Urea Nitrogen 8 mg/dL (7-23) Creatinine 1.1 mg/dL (0.7-1.2) Estimat Glomerular Filtration Rate > 60 mL/min (>60) Glucose Level 99 mg/dL (74-106) Calcium Level 8.4 mg/dL (8.6-10.2) L Total Bilirubin 0.5 mg/dL (0.0-1.2) Aspartate Amino Transf (AST/SGOT) 36 U/L (5-40) Alanine Aminotransferase (ALT/SGPT) 20 U/L (3-41) Alkaline Phosphatase 45 U/L (40-129) Total Protein 6.4 g/dL (6.6-8.7) L Albumin 3.5 g/dL (3.5-5.2) Globulin 2.9 g/dL Albumin/Globulin Ratio 1.2 (1.0-2.7) Height (Feet): 5 Height (Inches): 10.00 Weight (Pounds): 205 Medications Current Medications Medications (Trade) Dose Ordered Sig/Camila Route PRN Reason Start Time Stop Time Status Last Admin Dose Admin Acetaminophen (Tylenol) 650 mg Q4H PRN ORAL fever 12/26/16 18:45 01/25/17 18:44 Al Hydroxide/Mg Hydroxide (Mylanta II) 30 ml Q6H PRN ORAL dyspepsia 12/26/16 18:45 01/25/17 18:44 Chlordiazepoxide (Librium) 25 mg Q6H PRN ORAL Agitation 12/26/16 18:45 01/02/17 18:44 Dextrose (Dextrose 50%) STAT PRN IV Hypoglycemia 12/26/16 18:45 01/25/17 18:44 Folic Acid 1 mg/ Magnesium Sulfate 2000 mg/ Multivitamins 10 ml/Sodium Chloride 1,014.2 ml @ 124.876 mls/hr Q24H IV 12/26/16 22:00 01/25/17 21:59 12/26/16 21:42 Heparin Sodium (Porcine) (Heparin 5000 units/ml) 5,000 units EVERY 12 HOURS SUBQ 12/26/16 21:00 01/25/17 20:59 12/27/16 09:09 Levetiracetam (Keppra) 500 mg EVERY 12 HOURS ORAL 12/26/16 21:00 01/25/17 20:59 12/27/16 09:08 Lorazepam (Ativan 2mg/ml 1ml) 2 mg Q1H PRN IV seizures 12/26/16 18:45 01/02/17 18:44 Morphine Sulfate (Morphine Sulfate) 1 mg Q4H PRN IVP For Pain 4-10 12/26/16 18:45 01/02/17 18:44 Ondansetron HCl (Zofran) 4 mg Q6H PRN IVP Nausea & Vomiting 12/26/16 18:45 01/25/17 18:44 Polyethylene Glycol (Miralax) 17 gm HSPRN PRN ORAL Constipation 12/26/16 18:45 01/25/17 18:44 Thiamine HCl 100 mg/Dextrose 56 ml @ 112 mls/hr Q24H IVPB 12/26/16 22:00 01/25/17 21:59 12/26/16 21:41 Zolpidem Tartrate (Ambien) 5 mg HSPRN PRN ORAL Insomnia 12/26/16 18:45 01/02/17 18:44 Assessment/Plan Problem List: (1) Alcohol withdrawal seizure ICD Codes: F10.239 - Alcohol dependence with withdrawal, unspecified; R56.9 - Unspecified convulsions SNOMED: 321926223 Qualifiers: Qualified Codes: F10.230 - Alcohol dependence with withdrawal, uncomplicated (2) Substance abuse ICD Codes: F19.10 - Other psychoactive substance abuse, uncomplicated SNOMED: [id number] (3) Altered mental status ICD Codes: R41.82 - Altered mental status, unspecified SNOMED: 182122015 Qualifiers: Qualified Codes: R41.82 - Altered mental status, unspecified Assessment/Plan telemetry monitoring neurology consult prn LATESHA Gottlieb Dec 27, 2016 10:50
--- NOTE | 2016-12-27 10:51 | Pulmonology Progress Note ---
Assessment/Plan Problems: (1) Alcohol withdrawal seizure (2) Substance abuse (3) Altered mental status Assessment/Plan no more seizures awaiting neuro evaluation Subjective ROS Limited/Unobtainable: No Constitutional: Reports: no symptoms HEENT: Repors: no symptoms Respiratory: Reports: no symptoms Cardiovascular: Reports: no symptoms Allergies: Coded Allergies: No Known Allergies (Unverified , 07/29/16) Objective Last 24 Hour Vital Signs Date Time Temp Pulse Resp B/P (MAP) Pulse Ox O2 Delivery O2 Flow Rate FiO2 12/27/16 08:00 97.9 62 22 114/78 96 Room Air 12/27/16 04:00 98.4 65 20 129/77 Room Air 12/27/16 04:00 72 12/27/16 00:00 98.0 64 20 127/76 95 Room Air 12/27/16 00:00 68 12/26/16 20:51 71 12/26/16 20:46 98.0 87 20 134/76 99 Room Air 12/26/16 20:46 87 20 134/76 99 Room Air 12/26/16 20:00 97.7 69 20 118/66 95 Room Air 12/26/16 18:30 98.4 82 19 127/83 97 Room Air 12/26/16 17:25 98.6 88 16 136/70 99 Room Air 12/26/16 15:30 100 15 Room Air 12/26/16 15:22 99.1 100 15 125/64 96 Room Air Intake and Output 12/27/16 12/28/16 19:00 07:00 Intake Total 300 ml Balance 300 ml Intake Oral 300 ml General Appearance: WD/WN HEENT: normocephalic Respiratory/Chest: chest wall non-tender, lungs clear Cardiovascular: normal peripheral pulses, normal rate, no JVD Abdomen: normal bowel sounds Genitourinary: normal external genitalia Skin: no lesions, no ulcers Neurologic/Psychiatric: screening representative II-XII grossly normal Lymphatic: no neck adenopathy Laboratory Tests 12/26/16 15:45: White Blood Count 11.4H, Red Blood Count 4.63L, Hemoglobin 13.8L, Hematocrit 44.8, Mean Corpuscular Volume 97, Mean Corpuscular Hemoglobin 29.8, Mean Corpuscular Hemoglobin Concent 30.7L, Red Cell Distribution Width 12.5, Platelet Count 228, Mean Platelet Volume 7.2, Neutrophils (%) (Auto) 67.5, Lymphocytes (%) (Auto) 19.8L, Monocytes (%) (Auto) 9.0, Eosinophils (%) (Auto) 2.8, Basophils (%) (Auto) 0.8, Sodium Level 139, Potassium Level 3.6, Chloride Level 95L, Carbon Dioxide Level 20, Anion Gap 24H, Blood Urea Nitrogen 12, Creatinine 1.5H, Estimat Glomerular Filtration Rate 57.4, Glucose Level 118H, Calcium Level 9.5, Total Bilirubin 0.7, Aspartate Amino Transf (AST/SGOT) 44H, Alanine Aminotransferase (ALT/SGPT) 27, Alkaline Phosphatase 48, Total Creatine Kinase 947H, Total Protein 7.5, Albumin 4.5, Globulin 3.0, Albumin/Globulin Ratio 1.5, Salicylates Level < 1L, Acetaminophen Level < 10L, Serum Alcohol < 10 12/26/16 15:50: Lactic Acid Level 11.60H 12/26/16 16:55: Urine Opiates Screen Negative, Urine Barbiturates Screen Negative, Phencyclidine (PCP) Screen Negative, Urine Amphetamines Screen Negative, Urine Benzodiazepines Screen Negative, Urine Cocaine Screen PositiveH, Urine Marijuana (THC) Screen Negative 12/26/16 17:17: Lactic Acid Level 3.00H 12/27/16 07:25: White Blood Count 8.0, Red Blood Count 4.32L, Hemoglobin 13.8L, Hematocrit 40.2L , Mean Corpuscular Volume 93, Mean Corpuscular Hemoglobin 31.9H, Mean Corpuscular Hemoglobin Concent 34.3, Red Cell Distribution Width 11.9, Platelet Count 220, Mean Platelet Volume 7.3, Neutrophils (%) (Auto) 61.8, Lymphocytes (% ) (Auto) 26.1, Monocytes (%) (Auto) 8.3, Eosinophils (%) (Auto) 3.3H, Basophils (%) (Auto) 0.4, Sodium Level 139, Potassium Level 3.7, Chloride Level 103, Carbon Dioxide Level 25, Anion Gap 11, Blood Urea Nitrogen 8, Creatinine 1.1, Estimat Glomerular Filtration Rate > 60, Glucose Level 99, Calcium Level 8.4L, Total Bilirubin 0.5, Aspartate Amino Transf (AST/SGOT) 36, Alanine Aminotransferase (ALT/SGPT) 20, Alkaline Phosphatase 45, Total Protein 6.4L, Albumin 3.5, Globulin 2.9, Albumin/Globulin Ratio 1.2 Current Medications Medications (Trade) Dose Ordered Sig/Camila Route PRN Reason Start Time Stop Time Status Last Admin Dose Admin Acetaminophen (Tylenol) 650 mg Q4H PRN ORAL fever 12/26/16 18:45 01/25/17 18:44 Al Hydroxide/Mg Hydroxide (Mylanta II) 30 ml Q6H PRN ORAL dyspepsia 12/26/16 18:45 01/25/17 18:44 Chlordiazepoxide (Librium) 25 mg Q6H PRN ORAL Agitation 12/26/16 18:45 01/02/17 18:44 Dextrose (Dextrose 50%) STAT PRN IV Hypoglycemia 12/26/16 18:45 01/25/17 18:44 Folic Acid 1 mg/ Magnesium Sulfate 2000 mg/ Multivitamins 10 ml/Sodium Chloride 1,014.2 ml @ 124.876 mls/hr Q24H IV 12/26/16 22:00 01/25/17 21:59 12/26/16 21:42 Heparin Sodium (Porcine) (Heparin 5000 units/ml) 5,000 units EVERY 12 HOURS SUBQ 12/26/16 21:00 01/25/17 20:59 12/27/16 09:09 Levetiracetam (Keppra) 500 mg EVERY 12 HOURS ORAL 12/26/16 21:00 01/25/17 20:59 12/27/16 09:08 Lorazepam (Ativan 2mg/ml 1ml) 2 mg Q1H PRN IV seizures 12/26/16 18:45 01/02/17 18:44 Morphine Sulfate (Morphine Sulfate) 1 mg Q4H PRN IVP For Pain 4-10 12/26/16 18:45 01/02/17 18:44 Ondansetron HCl (Zofran) 4 mg Q6H PRN IVP Nausea & Vomiting 12/26/16 18:45 01/25/17 18:44 Polyethylene Glycol (Miralax) 17 gm HSPRN PRN ORAL Constipation 12/26/16 18:45 01/25/17 18:44 Thiamine HCl 100 mg/Dextrose 56 ml @ 112 mls/hr Q24H IVPB 12/26/16 22:00 01/25/17 21:59 12/26/16 21:41 Zolpidem Tartrate (Ambien) 5 mg HSPRN PRN ORAL Insomnia 12/26/16 18:45 01/02/17 18:44 LATESHA LAW Dec 27, 2016 10:51
--- NOTE | 2016-12-27 11:47 | Diagnostic Imaging Report ---
Indication: Chest pain Comparison: 07/29/16 A single view chest radiograph was obtained. Findings: Cardiomediastinal appearance is within normal limits for age. Pulmonary vascularity is appropriate. The diaphragmatic contour is smooth and costophrenic angles are sharp. No pleural effusions are identified. The bones are unremarkable. Impression: No acute findings
[2016-12-27 12:00] VITALS: BP 118/76
--- NOTE | 2016-12-27 13:36 | Neurology Progress Note ---
Interim History Interim History ROS Limited/Unobtainable: No Objective Physical Exam Last Vital Signs Date Time Temp Pulse Resp B/P (MAP) Pulse Ox O2 Delivery O2 Flow Rate FiO2 12/27/16 08:00 97.9 62 22 114/78 96 Room Air Laboratory Tests Test 12/26/16 15:45 12/26/16 15:50 12/26/16 16:55 12/26/16 17:17 White Blood Count 11.4 K/UL (4.8-10.8) H Red Blood Count 4.63 M/UL (4.70-6.10) L Hemoglobin 13.8 G/DL (14.2-18.0) L Hematocrit 44.8 % (42.0-52.0) Mean Corpuscular Volume 97 FL (80-99) Mean Corpuscular Hemoglobin 29.8 PG (27.0-31.0) Mean Corpuscular Hemoglobin Concent 30.7 G/DL (32.0-36.0) L Red Cell Distribution Width 12.5 % (11.6-14.8) Platelet Count 228 K/UL (150-450) Mean Platelet Volume 7.2 FL (6.5-10.1) Neutrophils (%) (Auto) 67.5 % (45.0-75.0) Lymphocytes (%) (Auto) 19.8 % (20.0-45.0) L Monocytes (%) (Auto) 9.0 % (1.0-10.0) Eosinophils (%) (Auto) 2.8 % (0.0-3.0) Basophils (%) (Auto) 0.8 % (0.0-2.0) Sodium Level 139 mEQ/L (135-145) Potassium Level 3.6 mEQ/L (3.4-4.9) Chloride Level 95 mEQ/L (98-107) L Carbon Dioxide Level 20 mEQ/L (20-30) Anion Gap 24 (5-15) H Blood Urea Nitrogen 12 mg/dL (7-23) Creatinine 1.5 mg/dL (0.7-1.2) H Estimat Glomerular Filtration Rate 57.4 mL/min (>60) Glucose Level 118 mg/dL (74-106) H Calcium Level 9.5 mg/dL (8.6-10.2) Total Bilirubin 0.7 mg/dL (0.0-1.2) Aspartate Amino Transf (AST/SGOT) 44 U/L (5-40) H Alanine Aminotransferase (ALT/SGPT) 27 U/L (3-41) Alkaline Phosphatase 48 U/L (40-129) Total Creatine Kinase 947 U/L (38-174) H Total Protein 7.5 g/dL (6.6-8.7) Albumin 4.5 g/dL (3.5-5.2) Globulin 3.0 g/dL Albumin/Globulin Ratio 1.5 (1.0-2.7) Salicylates Level < 1 mg/dL (10-30) L Acetaminophen Level < 10 ug/mL (10-30) L Serum Alcohol < 10 mg/dL Lactic Acid Level 11.60 mmol/L (0.66-2.22) H 3.00 mmol/L (0.66-2.22) H Urine Opiates Screen Negative (NEGATIVE) Urine Barbiturates Screen Negative (NEGATIVE) Phencyclidine (PCP) Screen Negative (NEGATIVE) Urine Amphetamines Screen Negative (NEGATIVE) Urine Benzodiazepines Screen Negative (NEGATIVE) Urine Cocaine Screen Positive (NEGATIVE) H Urine Marijuana (THC) Screen Negative (NEGATIVE) Test 12/27/16 07:25 White Blood Count 8.0 K/UL (4.8-10.8) Red Blood Count 4.32 M/UL (4.70-6.10) L Hemoglobin 13.8 G/DL (14.2-18.0) L Hematocrit 40.2 % (42.0-52.0) L Mean Corpuscular Volume 93 FL (80-99) Mean Corpuscular Hemoglobin 31.9 PG (27.0-31.0) H Mean Corpuscular Hemoglobin Concent 34.3 G/DL (32.0-36.0) Red Cell Distribution Width 11.9 % (11.6-14.8) Platelet Count 220 K/UL (150-450) Mean Platelet Volume 7.3 FL (6.5-10.1) Neutrophils (%) (Auto) 61.8 % (45.0-75.0) Lymphocytes (%) (Auto) 26.1 % (20.0-45.0) Monocytes (%) (Auto) 8.3 % (1.0-10.0) Eosinophils (%) (Auto) 3.3 % (0.0-3.0) H Basophils (%) (Auto) 0.4 % (0.0-2.0) Sodium Level 139 mEQ/L (135-145) Potassium Level 3.7 mEQ/L (3.4-4.9) Chloride Level 103 mEQ/L (98-107) Carbon Dioxide Level 25 mEQ/L (20-30) Anion Gap 11 (5-15) Blood Urea Nitrogen 8 mg/dL (7-23) Creatinine 1.1 mg/dL (0.7-1.2) Estimat Glomerular Filtration Rate > 60 mL/min (>60) Glucose Level 99 mg/dL (74-106) Calcium Level 8.4 mg/dL (8.6-10.2) L Total Bilirubin 0.5 mg/dL (0.0-1.2) Aspartate Amino Transf (AST/SGOT) 36 U/L (5-40) Alanine Aminotransferase (ALT/SGPT) 20 U/L (3-41) Alkaline Phosphatase 45 U/L (40-129) Total Protein 6.4 g/dL (6.6-8.7) L Albumin 3.5 g/dL (3.5-5.2) Globulin 2.9 g/dL Albumin/Globulin Ratio 1.2 (1.0-2.7) Impression/Recommendations Recommendations #[id number] THANG JOSÉ Dec 27, 2016 13:36
[2016-12-27 16:00] VITALS: BP 121/76
--- NOTE | 2016-12-27 18:01 | Cardiology Report ---
APPROVED REPORT EKG Measurement Heart [id number] Normal sinus rhythm Incomplete right bundle branch block Borderline ECG
[2016-12-27 20:00] VITALS: BP 114/68
[2016-12-27] MEDS: Folic Acid 1 MG, Magnesium Sulfate 2,000 MG, Multivitamin - 12 Injection 10 ML in NS w/... IV SCH (22:00)
[2016-12-27] MEDS: Thiamine 100mg in D5W 55ml IVPB SCH (23:26)
[2016-12-28] VITALS: BP 118/70
[2016-12-28 04:00] VITALS: BP 118/69
[2016-12-28] MEDS: Heparin 5000 units/ml inj SUBQ SCH (08:10)
[2016-12-28 08:21] VITALS: BP 125/77
--- NOTE | 2016-12-28 08:47 | Consultation ---
DATE OF CONSULTATION: 12/27/2016 NEUROLOGICAL CONSULTATION CONSULTING PHYSICIAN: Royce Nuno M.D. REQUESTING PHYSICIAN: Deepthi Henry M.D. History Of Present Illness: This is a 61-year-old man, who was seen in neurological consultation to evaluate new onset of seizure activities. According to the patient, he is drinking daily a case of beer. On the day of admission, he was not taking any, but he developed generalized seizures. According to the , who accompanied him to the emergency room, he was not at home for a few days. He mentioned that he was using cocaine and alcohol. Paramedics were called to the scene. He was describing him with poor respiration and also pinpoint pupils. He responded well to use of Narcan. He remained being confused, disoriented, and intermittently combative while in the emergency room. The patient's vital signs on admission were stable with blood pressure 125/64 and temperature 99.1 degrees. His initial laboratory work included a CBC study with WBC 11.4. Chemistry panel, elevated lactic acid to 11.6, creatinine 1.5, and of 947. Toxicology panel positive for cocaine, but there was no alcohol. His chest x-ray revealed no acute findings. Since admission until present, there were no further seizure activities noted. The patient is known to me from a previous assessment in July of this year, and he was admitted for withdrawal symptomatology. He reported then that he was recently advised to start on Lamictal, although was noncompliant. While under observation, he was observed to have a generalized clonic-tonic seizure episode. Sedated with Ativan. CAT scan of the brain revealed only nonspecific white matter hypoattenuation due to chronic small vessel disease. There was no evidence of acute abnormalities. His toxicology panel was then positive for cocaine. The patient was treated with Librium, thiamine, and given Keppra. The patient at this time does not endorse having seizures in the past. 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 He admitted for the last three years, he is drinking beer predominantly approximately one case of beer daily. He had previous withdrawal episodes. He is a smoker. The patient denies any major medical problems. He is not on any treatment. ALLERGIES: None reported. Social History: He lives with his fiancee. He checked himself recently for STD, which was negative. 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 FAMILY HISTORY: Noncontributory. Review Of Symptoms: At this time, he is feeling well. He has no complaints. He is aware that he is having seizures. He is aware that he has alcohol abuse. Denies chest pain or palpitations. No respiratory problems. Denies abdominal pain or discomfort. No urine or bowel incontinence. PHYSICAL EXAMINATION: General: A well-developed and well-nourished man, not in acute distress, lying comfortably in bed, watching TV show. VITAL SIGNS: Blood pressure 128/70 and respirations 14. HEENT: Head is normocephalic. There is no evidence of trauma. Eyes, ears, and throat are clear. NECK: Supple. Musculoskeletal: Unremarkable. There is no deformities. Peripheral pulses 1+ and symmetric. Mental Status: The patient is alert and oriented x3. He has a poor insight. He follows commands, coherent. Cranial Nerve II: Pupils both responding to light and accommodation. Extraocular movement intact. No nystagmus. CRANIAL NERVE V: Normal corneal responses. CRANIAL NERVE VII: No facial asymmetry. CRANIAL NERVE VIII: Normal hearing. CRANIAL NERVES IX THROUGH XII: Within normal limits. Motor Examination: Normal muscle tone. Strength 5/5 in all extremities. No involuntary movement. Deep tendon reflexes 1+ and symmetric with downgoing toes on both sides. SENSORY EXAMINATION: Normal to pinprick and light touch. GAIT: Stable. IMPRESSION: 1. Acute alcohol withdrawal seizure activity. 2. Substance abuse including alcohol and cocaine. 3. Nicotine dependent. 4. Rule out impending delirium tremens. Recommendations: The patient to be observed for 24 hours for seizure activities and for evidence of delirium. We will maintain on banana bag (magnesium supplement, thiamine, and folate supplement). Continue with Keppra 500 mg b.i.d. The patient has no evidence of chronic seizure disorder and for this reason, continuous use of anticonvulsant will be not necessary, although recurrent seizures following alcohol withdrawal are expected as long as the patient maintains substance abuse. Royce Mio Nuno DR: MARTHA JOB#: [id number] CC:
[2016-12-28 11:28] VITALS: BP 122/82
--- NOTE | 2016-12-28 12:16 | Pulmonology Progress Note ---
Assessment/Plan Problems: (1) Alcohol withdrawal seizure (2) Substance abuse (3) Altered mental status Assessment/Plan no more seizures neuro evaluation appreciated advised against drinking dc home with outpatient drug rehab program Subjective ROS Limited/Unobtainable: No Constitutional: Reports: no symptoms HEENT: Repors: no symptoms Cardiovascular: Reports: no symptoms Gastrointestinal/Abdominal: Reports: no symptoms Allergies: Coded Allergies: No Known Allergies (Unverified , 07/29/16) Objective Last 24 Hour Vital Signs Date Time Temp Pulse Resp B/P (MAP) Pulse Ox O2 Delivery O2 Flow Rate FiO2 12/28/16 11:28 97.9 61 20 122/82 98 Room Air 12/28/16 08:21 96.2 76 20 125/77 96 Room Air 12/28/16 08:00 86 12/28/16 04:00 97.3 59 20 118/69 99 Room Air 12/28/16 04:00 68 12/28/16 00:00 62 12/28/16 00:00 97.0 58 21 118/70 97 Room Air 12/27/16 20:00 98.2 69 20 114/68 96 Room Air 12/27/16 20:00 63 12/27/16 16:00 98.1 63 22 121/76 97 Room Air Intake and Output 12/28/16 12/29/16 19:00 07:00 Intake Total 350 ml Output Total 900 ml Balance -550 ml Intake Oral 350 ml Output Urine Total 900 ml General Appearance: WD/WN HEENT: normocephalic, anicteric Respiratory/Chest: chest wall non-tender, lungs clear, normal breath sounds Cardiovascular: normal peripheral pulses, normal rate, regular rhythm Abdomen: normal bowel sounds, soft, non tender Extremities: no clubbing Skin: no rash, no ulcers Neurologic/Psychiatric: no motor/sensory deficits Current Medications Medications (Trade) Dose Ordered Sig/Camila Route PRN Reason Start Time Stop Time Status Last Admin Dose Admin Acetaminophen (Tylenol) 650 mg Q4H PRN ORAL fever 12/26/16 18:45 01/25/17 18:44 Al Hydroxide/Mg Hydroxide (Mylanta II) 30 ml Q6H PRN ORAL dyspepsia 12/26/16 18:45 01/25/17 18:44 Chlordiazepoxide (Librium) 25 mg Q6H PRN ORAL Agitation 12/26/16 18:45 10/9/17 18:44 Dextrose (Dextrose 50%) STAT PRN IV Hypoglycemia 12/26/16 18:45 01/25/17 18:44 Folic Acid 1 mg/ Magnesium Sulfate 2000 mg/ Multivitamins 10 ml/Sodium Chloride 1,014.2 ml @ 124.876 mls/hr Q24H IV 12/26/16 22:00 01/25/17 21:59 12/27/16 22:00 Heparin Sodium (Porcine) (Heparin 5000 units/ml) 5,000 units EVERY 12 HOURS SUBQ 12/26/16 21:00 01/25/17 20:59 12/28/16 08:10 Levetiracetam (Keppra) 500 mg EVERY 12 HOURS ORAL 12/26/16 21:00 01/25/17 20:59 12/28/16 08:08 Lorazepam (Ativan 2mg/ml 1ml) 2 mg Q1H PRN IV seizures 12/26/16 18:45 01/02/17 18:44 Morphine Sulfate (Morphine Sulfate) 1 mg Q4H PRN IVP For Pain 4-10 12/26/16 18:45 01/02/17 18:44 Ondansetron HCl (Zofran) 4 mg Q6H PRN IVP Nausea & Vomiting 12/26/16 18:45 01/25/17 18:44 Polyethylene Glycol (Miralax) 17 gm HSPRN PRN ORAL Constipation 12/26/16 18:45 01/25/17 18:44 Thiamine HCl 100 mg/Dextrose 56 ml @ 112 mls/hr Q24H IVPB 12/26/16 22:00 01/25/17 21:59 12/27/16 23:26 Zolpidem Tartrate (Ambien) 5 mg HSPRN PRN ORAL Insomnia 12/26/16 18:45 01/02/17 18:44 LATESHA LAW Dec 28, 2016 12:16
[2016-12-28] MEDS ORDERED: Tubing IV Secondary IV ONE (15:19)
--- NOTE | 2016-12-29 15:14 | Discharge Summary ---
Discharge Summary Hospital Course Date of Admission Dec 26, 2016 at 16:38 Date of Discharge Dec 28, 2016 at 15:20 Admitting Diagnosis altered mental status HPI Nehal Cervantes is a 61 year old male who was admitted on Dec 26, 2016 at 16:38 for Altered Mental Status Hospital Course [id number] Discharge Discharge Disposition Patient was discharged to Home (01) Discharge Diagnoses: Colleen Fuchs NP Dec 29, 2016 15:14
--- NOTE | 2016-12-30 02:15 | Discharge Summary 2 SIG ---
DATE OF ADMISSION: 12/26/2016 DATE OF DISCHARGE: 12/28/2016 STORE PROTECTION SPECIALIST: Royce Nuno M.D. Brief Hospital Course: The patient is a 61-year-old male with history of ETOH and cocaine abuse and EtOH related seizures was brought in by paramedics due to seizure event, witnessed by . EMS noted pinpoint pupils and low respiratory rate. He was given Narcan on the field with alleged good response. He was taken to ED where he appeared altered, possibly postictal. He has a history of cocaine abuse and was admitted in July for similar episode. On evaluation blood work showed mild leukocytosis. WBC was 11.4. Lactic acid was 11. Urine toxicology was positive for cocaine. He had a prior CT done in July that showed no mass or tumor, unlikely the source of seizure. He was loaded with Keppra. He was intermittently combative in the ED and was given IV Ativan. Chest x-ray showed no acute disease. He was admitted to telemetry for seizure disorder and was placed on seizure precautions. He underwent neurological evaluation. According to the patient, he had been drinking daily a case of beer and on the day of admission, he did not take any but he developed generalized seizure. Serum alcohol on admission was less than 10. He was given Librium and thiamine with magnesium and folate included in the banana bag. He was given Keppra 500 mg twice a day. The patient had no evidence of chronic seizure disorder and continued use of anticonvulsant would not be necessary although recurrent seizures following alcohol withdrawal are expected as long as the patient maintains his substance abuse. He was counseled on cessation of alcohol and cocaine use. He had no further seizure episodes. He was seen by social service. He was eventually discharged home and was advised outpatient drug rehabilitation program. FINAL DIAGNOSES: 1. Alcohol withdrawal seizure. 2. Substance abuse. 3. Altered mental status/acute toxic encephalopathy. DISPOSITION: The patient was discharged home. DISCHARGE MEDICATIONS: Refer to medication list. FOLLOWUP: The patient was advised to follow up with PMD in a week. Deepthi Henry M.D. I have been assigned to dictate discharge summary on this account and I was not involved in the patient's management. Colleen Fuchs N.P. DR: Tl JOB#: [id number] CC: ELY
== END 2016-12-28 15:20 | disposition home or self-care (01) | DRG 896 ==
LOC: EDBD 15:24 → EMR 16:36 → 2E 16:38 → EDBEDREQ 17:28
DX: F10.239 Alcohol dependence with withdrawal, unspecified (principal); G92 Toxic encephalopathy; G40.89 Other seizures; F19.10 Other psychoactive substance abuse, uncomplicated; R41.82 Altered mental status, unspecified; F17.200 Nicotine dependence, unspecified, uncomplicated; Z23 Encounter for immunization
CPT/HCPCS: 36415; 71010; 80053; 80299; 80300; 80329; 82550; 83605; 85025; 87081; 90630; 90732; 93005; 99285

== ENCOUNTER 2017-01-21 07:33 | Emergency (ER) | payer OTHER ==
[~2017-01-21] VITALS: Ht 182.9 cm; Wt 81.6 kg
[2017-01-21 07:35] VITALS: BP 118/72
[2017-01-21] MEDS ORDERED: chlordiazePOXIDE 25mg Cap ORAL ONE (07:45)
--- NOTE | 2017-01-21 07:55 | Emergency Room Report ---
History of Present Illness General Chief Complaint: Seizure Source: Patient Present Illness HPI 61-year-old male in history of alcohol abuse, seizure secondary to withdrawal, presenting with seizure. Patient was recently admitted to the hospital, discharged the first week of December for seizures related to alcohol withdrawal. Patient states his last drink was about one week ago. States that prior to one week ago he was still drinking daily after discharge. He was once on antiseizure medication however this was discontinued as seizures were likely alcohol related and not due to a primary seizure disorder EMS states that patient had a generalized tonic-clonic seizure at home, unknown if he hit head and fell. Patient unable to provide history, states he does not know. No tongue biting no urinary or fecal incontinence. Denies any other drug use. Patient is currently ANO x4 denying any pain at this time Allergies: Coded Allergies: No Known Allergies (Unverified , 07/29/16) Patient History Past Medical History: see triage record Past Surgical History: none Pertinent Family History: none Reviewed Nursing Documentation: PMH: Agreed, PSxH: Agreed Nursing Documentation-PMH Hx Cardiac Problems: No Hx Cancer: No Hx Gastrointestinal Problems: No Hx Neurological Problems: Yes Hx Seizures: Yes Review of Systems All Other Systems: negative except mentioned in HPI Physical Exam Vital Signs Date Time Temp Pulse Resp B/P (MAP) Pulse Ox O2 Delivery O2 Flow Rate FiO2 01/21/17 07:29 97.3 93 22 113/75 92 Room Air Sp02 EP Interpretation: reviewed, normal General Appearance: alert, GCS 15, non-toxic, mild distress Head: normocephalic, atraumatic Eyes: bilateral eye normal inspection, bilateral eye PERRL, bilateral eye EOMI ENT: normal ENT inspection, normal pharynx, normal voice, moist mucus membranes Neck: normal inspection, full range of motion, supple Respiratory: normal inspection, lungs clear, normal breath sounds, no respiratory distress, no retraction, no wheezing, speaking full sentences, chest symmetrical Cardiovascular #1: normal inspection, regular rate, rhythm, no edema, normal capillary refill Cardiovascular #2: 2+ radial (R), 2+ radial (L) Gastrointestinal: normal inspection, non tender, soft, non-distended, no guarding Genitourinary: no CVA tenderness Musculoskeletal: normal inspection, back normal, normal range of motion, non- tender Neurologic: normal inspection, alert, oriented x3, responsive, assembly leader III-XII nml as tested, motor strength/tone normal, sensory intact, speech normal Psychiatric: normal inspection, judgement/insight normal, memory normal Skin: normal inspection, normal color, no rash, warm/dry, well hydrated, normal turgor Medical Decision Making Diagnostic Impression: Primary Impression: Alcohol abuse Additional Impression: Seizure ER Course 61-year-old male with alcohol abuse, alcohol withdrawal, presents with seizure DDX: Seizures are most likely secondary to alcohol withdrawal Electrolyte disturbance: hypoglycemia vs. hyponatremia vs. hypocalcemia vs. hypomagnesemia Cardiac: Arrythmia/acs Intracranial pathology: intracranial bleed, stroke Tox Plan: Accu-Chek normal EKG Labs, tox labs CT, Librium, Ativan when necessary ER course: No further seizures in ED Has been stable during ED stay. AOx4, no neurological signs or symptoms CT neg got librium no withdrawal signs/sx not tachycardic ready for dc Disposition: Patient will be discharged to home. Patient counseled on abstinence of alcohol, or going to a detox facility Patient is to follow up with their primary care doctor in 5 days and neurologist within 1 week. Strict return precautions discussed such as severe headache, fever, chills, neck pain, prolonged or increased frequency of seizures. Patient verbalized understanding and agrees with plan. EKG Diagnostic Results EP Interpretation: Yes Rate: normal Rhythm: NSR ST Segments: T wave inversion aVL only, no other acute ST-T changes ASA given to patient: No Rhythm Strip EP Interpretation: Yes Rate: 78 Rhythm: NSR, no PVCs, no ectopy Chest X-ray CXR: Ordered: Yes 1 view Indication: Altered mental status EP interpretation: Yes Interpretation: No consolidation, no effusion, no PTX, no acute cardiopulmonary disease Impression: No acute disease Electronically signed by Car Lynne MD Laboratory Tests Test 01/21/17 07:30 White Blood Count 8.8 K/UL (4.8-10.8) Red Blood Count 5.01 M/UL (4.70-6.10) Hemoglobin 15.8 G/DL (14.2-18.0) Hematocrit 46.1 % (42.0-52.0) Mean Corpuscular Volume 92 FL (80-99) Mean Corpuscular Hemoglobin 31.6 PG (27.0-31.0) H Mean Corpuscular Hemoglobin Concent 34.3 G/DL (32.0-36.0) Red Cell Distribution Width 11.8 % (11.6-14.8) Platelet Count 277 K/UL (150-450) Mean Platelet Volume 7.0 FL (6.5-10.1) Neutrophils (%) (Auto) 61.1 % (45.0-75.0) Lymphocytes (%) (Auto) 25.5 % (20.0-45.0) Monocytes (%) (Auto) 8.8 % (1.0-10.0) Eosinophils (%) (Auto) 3.9 % (0.0-3.0) H Basophils (%) (Auto) 0.8 % (0.0-2.0) Sodium Level 136 MMOL/L (136-145) Potassium Level 3.3 MMOL/L (3.5-5.1) L Chloride Level 103 MMOL/L (98-107) Carbon Dioxide Level 25 MMOL/L (21-32) Anion Gap 8 mmol/L (5-15) Blood Urea Nitrogen 12 mg/dL (7-18) Creatinine 0.8 MG/DL (0.55-1.30) Estimate Glomerular Filtration Rate > 60 mL/min (>60) Glucose Level 151 MG/DL (74-106) H Calcium Level 7.3 MG/DL (8.5-10.1) L Total Bilirubin 0.2 MG/DL (0.2-1.0) Aspartate Amino Transferase (AST) 17 U/L (15-37) Alanine Aminotransferase (ALT) 12 U/L (12-78) Alkaline Phosphatase 152 U/L (46-116) H Total Creatine Kinase 39 U/L (26-308) Troponin I 0.000 ng/mL (0.000-0.056) Total Protein 5.7 G/DL (6.4-8.2) L Albumin 0.9 G/DL (3.4-5.0) L Globulin 4.8 g/dL Albumin/Globulin Ratio 0.2 (1.0-2.7) L Salicylates Level 0.8 ug/mL (2.8-20) L Acetaminophen Level < 2 MCG/ML (10-30) L Serum Alcohol < 3 mg/dL CT/MRI/US Diagnostic Results CT/MRI/US Diagnostic Results : Imaging Test Ordered: CT Head Impression Findings: The ventricular system is normal in size and configuration for age. There is no shift of midline structures. No abnormal extra-axial fluid collections are noted. There is no evidence of intracerebral bleeding. No other abnormal high or low density areas are noted within the brain. Intact calvarium. Visualized orbits and sinuses are unremarkable. No significant interim change Impression: Normal CT scan of the head without contrast material. Last Vital Signs Date Time Temp Pulse Resp B/P (MAP) Pulse Ox O2 Delivery O2 Flow Rate FiO2 01/21/17 07:29 97.3 93 22 113/75 92 Room Air Disposition: HOME, SELF-CARE Condition: Improved Car Lynne M.D. Jan 21, 2017 07:55
[2017-01-21 08:13] VITALS: BP 118/72
[2017-01-21 08:18] LABS: BASOPHILS % (AUTO) 0.8 % (0.0-2.0); EOSINOPHILS % (AUTO) 3.9 % (0.0-3.0); LYMPHOCYTES % (AUTO) 25.5 % (20.0-45.0); MEAN CORPUSCULAR HEMOGLOBIN 31.6 PG (27.0-31.0); MEAN CORPUSCULAR HGB CONC 34.3 G/DL (32.0-36.0); MEAN CORPUSCULAR VOLUME 92 FL (80-99); MONOCYTES % (AUTO) 8.8 % (1.0-10.0); NEUTROPHILS % (AUTO) 61.1 % (45.0-75.0); PLATELET COUNT 277 K/UL (150-450); RED BLOOD COUNT 5.01 M/UL (4.70-6.10); RED CELL DISTRIBUTION WIDTH 11.8 % (11.6-14.8); WHITE BLOOD COUNT 8.8 K/UL (4.8-10.8)
[2017-01-21 08:33] LABS: ACETAMINOPHEN < 2 MCG/ML (10-30); ALANINE AMINOTRANSFERASE 12 U/L (12-78); ALBUMIN/GLOBULIN RATIO 0.2 (1.0-2.7); ALCOHOL < 3 mg/dL; ANION GAP 8 mmol/L (5-15); ASPARTATE AMINO TRANSFERASE 17 U/L (15-37); CALCIUM 7.3 MG/DL (8.5-10.1); CARBON DIOXIDE 25 MMOL/L (21-32); CHLORIDE 103 MMOL/L (98-107); CREATININE 0.8 MG/DL (0.55-1.30); GLOMERULAR FILTRATION RATE > 60 mL/min (>60); POTASSIUM 3.3 MMOL/L (3.5-5.1); SODIUM 136 MMOL/L (136-145); TOTAL PROTEIN 5.7 G/DL (6.4-8.2)
[2017-01-21 08:57] VITALS: BP 104/62
--- NOTE | 2017-01-21 09:17 | Diagnostic Imaging Report ---
Indication: Altered mental status Technique: Continuous helical CT scanning of the head was performed without intravenous contrast material. Axial and coronal 5 mm sections were generated. Radiation dose was minimized using automated exposure control Dose: Total Dose Length Product - DLP thousand [address] Dose Index - CTDIvol(s) 70 mGy. Comparison: 07/29/2016 Findings: The ventricular system is normal in size and configuration for age. There is no shift of midline structures. No abnormal extra-axial fluid collections are noted. There is no evidence of intracerebral bleeding. No other abnormal high or low density areas are noted within the brain. Intact calvarium. Visualized orbits and sinuses are unremarkable. No significant interim change Impression: Normal CT scan of the head without contrast material. The CT scanner at [facility] is accredited by the [employer] and the scans are performed using protocols designed to limit radiation exposure to as low as reasonably achievable to attain images of sufficient resolution adequate for diagnostic evaluation.
--- NOTE | 2017-01-21 09:57 | Diagnostic Imaging Report ---
Indication: Cough Technique: One view of the chest Comparison: December 26 2016 Findings: Lungs and pleural spaces are clear. Heart size is normal. No significant change Impression: No acute process This agrees with the preliminary interpretation provided by the emergency room physician
[2017-01-21 10:58] VITALS: BP 95/69
[2017-01-21 11:55] VITALS: BP 106/71
--- NOTE | 2017-01-22 18:35 | Cardiology Report ---
APPROVED REPORT EKG Measurement Heart [id number] Normal sinus rhythm Normal ECG
== END 2017-01-21 11:55 | disposition home or self-care (01) ==
LOC: EDBD 07:33 → EMR 07:59
DX: F10.239 Alcohol dependence with withdrawal, unspecified (principal); R56.9 Unspecified convulsions; R05 Cough; R41.82 Altered mental status, unspecified
CPT/HCPCS: 36415; 70450; 71010; 80053; 82550; 84484; 85025; 93005; 99284; G0480; 80329

== ENCOUNTER 2017-02-15 08:49 | Inpatient (IN) | payer MEDICAID, OTHER ==
[~2017-02-15] VITALS: Ht 182.9 cm; Wt 99.8 kg
[2017-02-15 09:08] VITALS: BP 116/67
--- NOTE | 2017-02-15 09:11 | Emergency Room Report ---
History of Present Illness General Chief Complaint: Seizure Source: Patient, Medical Record, EMS Present Illness HPI 61YOM BIBEMS for suspected seizure activity this morning, patient not sure what happened, states "I woke up like this" Patient endorses drink of alcohol last night, denies drug use, denies any trauma Denies headache, vomiting, any trauma, chest pain or [facility] feels well otherwise had additional seizure in the ED Allergies: Coded Allergies: No Known Allergies (Unverified , 07/29/16) Patient History Past Medical History: seizures Past Surgical History: none Pertinent Family History: none Social History: Reports: alcohol use Immunizations: UTD Reviewed Nursing Documentation: PMH: Agreed, PSxH: Agreed Nursing Documentation-PMH Hx Cardiac Problems: No Hx Cancer: No Hx Gastrointestinal Problems: No Hx Neurological Problems: Yes Hx Seizures: Yes Review of Systems All Other Systems: negative except mentioned in HPI Physical Exam Vital Signs Date Time Temp Pulse Resp B/P (MAP) Pulse Ox O2 Delivery O2 Flow Rate FiO2 02/15/17 08:41 98.1 98 20 134/82 99 Room Air Sp02 EP Interpretation: reviewed, normal General Appearance: normal inspection, well appearing, no apparent distress, alert, GCS 15, non-toxic Head: atraumatic Eyes: bilateral eye PERRL, bilateral eye EOMI ENT: normal ENT inspection, hearing grossly normal, normal voice Neck: normal inspection, full range of motion, supple, no bony tend Respiratory: normal inspection, lungs clear, normal breath sounds, no respiratory distress, no retraction, no wheezing Cardiovascular #1: regular rate, rhythm, no edema Gastrointestinal: normal inspection, normal bowel sounds, non tender, soft, no guarding, no hernia Genitourinary: no CVA tenderness Musculoskeletal: normal inspection, back normal, normal range of motion, Melva' s Sign negative Neurologic: normal inspection, alert, oriented x3, responsive, first assistant manager III-XII nml as tested, motor strength/tone normal, DTRs symmetric, speech normal Psychiatric: normal inspection, judgement/insight normal, mood/affect normal Skin: normal inspection, normal color, no rash Medical Decision Making Diagnostic Impression: Primary Impression: ETON withdrawal seizure disorder Additional Impression: KAROL (acute kidney injury) ER Course 61YOM with suspected seizure like activity VSS. Afebrile Not postictal A&OX4 No focal neuro deficits Had additional seizure in the ED. Question continued ETOH abuse and w/drawal CT head on recent admission was negative for new mass Patient was admitted a few weeks ago for similar episode thought to be due to polysubstance abuse and alcohol withdrawal Consideration was made to start patient on Keppra but was thought not to be a good idea since patient continues to drink alcohol Neurology consult did not recommend antiepileptic medication at this time ECG was done as a screening test per seizure protocol, was reviewed in ER and is nonischemic Given IM ativan in ED Loaded with Keppra labs significant for her leukocytosis, elevated anion gap likely due to seizure. Tylenol and aspirin levels are normal. No additional seizures in the ER after loaded with Keppra. Telemetry admission to Dr. Gurrola covering for Dr Hanks as per insurance at 11am EKG Diagnostic Results Rate: normal Rhythm: NSR ST Segments: no acute changes ASA given to the pt in ED: No Rhythm Strip Diag. Results EP Interpretation: yes Rate: 82 Rhythm: NSR, no PVC's, no ectopy Last Vital Signs Date Time Temp Pulse Resp B/P (MAP) Pulse Ox O2 Delivery O2 Flow Rate FiO2 02/15/17 08:41 98.1 98 20 134/82 99 Room Air Status: improved Disposition: ADMITTED INPATIENT Condition: Serious MARIA A FALCON M.D. Feb 15, 2017 09:11
[2017-02-15] MEDS ORDERED: LORazepam Inj 2mg/ml 1ml ONE (09:19)
[2017-02-15] MEDS ORDERED: levETIRAcetam 1,000mg/NS100ml 100 ML IVPB ONE (09:30)
[2017-02-15] MEDS ORDERED: LORazepam Inj 2mg/ml 1ml IM ONE (09:30)
[2017-02-15 09:55] LABS: BASOPHILS % (AUTO) 1.3 % (0.0-2.0); EOSINOPHILS % (AUTO) 1.5 % (0.0-3.0); LYMPHOCYTES % (AUTO) 26.4 % (20.0-45.0); MEAN CORPUSCULAR HEMOGLOBIN 30.9 PG (27.0-31.0); MEAN CORPUSCULAR HGB CONC 32.5 G/DL (32.0-36.0); MEAN CORPUSCULAR VOLUME 95 FL (80-99); MEAN PLATELET VOLUME 7.5 FL (6.5-10.1); MONOCYTES % (AUTO) 12.3 % (1.0-10.0); NEUTROPHILS % (AUTO) 58.5 % (45.0-75.0); PLATELET COUNT 328 K/UL (150-450); RED BLOOD COUNT 5.05 M/UL (4.70-6.10); RED CELL DISTRIBUTION WIDTH 12.4 % (11.6-14.8); WHITE BLOOD COUNT 13.2 K/UL (4.8-10.8)
[2017-02-15 10:13] LABS: ANION GAP 23 mmol/L (5-15); CALCIUM 9.5 MG/DL (8.5-10.1); CARBON DIOXIDE 18 MMOL/L (21-32); CHLORIDE 102 MMOL/L (98-107); CREATININE 1.8 MG/DL (0.55-1.30); GLOMERULAR FILTRATION RATE 46.5 mL/min (>60); SODIUM 143 MMOL/L (136-145)
[2017-02-15 10:16] LABS: ALANINE AMINOTRANSFERASE 28 U/L (12-78); ALBUMIN/GLOBULIN RATIO 0.9 (1.0-2.7); ASPARTATE AMINO TRANSFERASE 27 U/L (15-37); TOTAL PROTEIN 8.9 G/DL (6.4-8.2)
[2017-02-15 10:21] LABS: ACETAMINOPHEN < 2 MCG/ML (10-30); ALCOHOL < 3 mg/dL
[2017-02-15] MEDS ORDERED: UNOBMED (10:21)
[2017-02-15 12:00] VITALS: BP 119/69
--- NOTE | 2017-02-15 13:00 | Neurology Progress Note ---
Objective Physical Exam Last Vital Signs Date Time Temp Pulse Resp B/P (MAP) Pulse Ox O2 Delivery O2 Flow Rate FiO2 02/15/17 11:20 91 20 117/67 100 Room Air 02/15/17 09:08 98.1 Laboratory Tests Test 02/15/17 09:30 02/15/17 10:15 White Blood Count 13.2 K/UL (4.8-10.8) H Red Blood Count 5.05 M/UL (4.70-6.10) Hemoglobin 15.6 G/DL (14.2-18.0) Hematocrit 48.1 % (42.0-52.0) Mean Corpuscular Volume 95 FL (80-99) Mean Corpuscular Hemoglobin 30.9 PG (27.0-31.0) Mean Corpuscular Hemoglobin Concent 32.5 G/DL (32.0-36.0) Red Cell Distribution Width 12.4 % (11.6-14.8) Platelet Count 328 K/UL (150-450) Mean Platelet Volume 7.5 FL (6.5-10.1) Neutrophils (%) (Auto) 58.5 % (45.0-75.0) Lymphocytes (%) (Auto) 26.4 % (20.0-45.0) Monocytes (%) (Auto) 12.3 % (1.0-10.0) H Eosinophils (%) (Auto) 1.5 % (0.0-3.0) Basophils (%) (Auto) 1.3 % (0.0-2.0) Sodium Level 143 MMOL/L (136-145) Potassium Level 4.0 MMOL/L (3.5-5.1) Chloride Level 102 MMOL/L (98-107) Carbon Dioxide Level 18 MMOL/L (21-32) L Anion Gap 23 mmol/L (5-15) H Blood Urea Nitrogen 15 mg/dL (7-18) Creatinine 1.8 MG/DL (0.55-1.30) H Estimat Glomerular Filtration Rate 46.5 mL/min (>60) Glucose Level 114 MG/DL (74-106) H Calcium Level 9.5 MG/DL (8.5-10.1) Total Bilirubin 0.5 MG/DL (0.2-1.0) Aspartate Amino Transf (AST/SGOT) 27 U/L (15-37) Alanine Aminotransferase (ALT/SGPT) 28 U/L (12-78) Alkaline Phosphatase 61 U/L (46-116) Troponin I < 0.017 ng/mL (0.000-0.056) Total Protein 8.9 G/DL (6.4-8.2) H Albumin 4.2 G/DL (3.4-5.0) Globulin 4.7 g/dL Albumin/Globulin Ratio 0.9 (1.0-2.7) L Salicylates Level 5.2 ug/mL (2.8-20) Acetaminophen Level < 2 MCG/ML (10-30) L Phenytoin (Dilantin) Level < 0.4 ug/mL (10-20) L Serum Alcohol < 3 mg/dL Urine Opiates Screen Negative (NEGATIVE) Urine Barbiturates Screen Negative (NEGATIVE) Phencyclidine (PCP) Screen Negative (NEGATIVE) Urine Amphetamines Screen Negative (NEGATIVE) Urine Benzodiazepines Screen Negative (NEGATIVE) Urine Cocaine Screen Positive (NEGATIVE) H Urine Marijuana (THC) Screen Negative (NEGATIVE) Impression/Recommendations Problems: (1) ETON withdrawal seizure disorder (2) Substance abuse (3) KAROL (acute kidney injury) Status: unchanged Recommendations #[id number] THANG JOSÉ Feb 15, 2017 13:00
[2017-02-15] MEDS ORDERED: Folic Acid 1 MG, Magnesium Sulfate 2,000 MG, Multivitamin - 12 Injection 10 ML in NS w/... IV SCH (14:30)
[2017-02-15] MEDS ORDERED: Thiamine 100mg in D5W 55ml IVPB SCH (14:30)
[2017-02-15] MEDS ORDERED: LORazepam 1mg tab ORAL PRN (15:30)
[2017-02-15 16:05] LABS: CALCIUM 9.7 MG/DL (8.5-10.1); MAGNESIUM 2.5 MG/DL (1.8-2.4); PHOSPHORUS 3.5 MG/DL (2.5-4.9)
[2017-02-15 16:51] VITALS: BP 117/74
--- NOTE | 2017-02-15 21:17 | Consultation ---
DATE OF CONSULTATION: 02/15/2017 NEUROLOGICAL CONSULTATION CONSULTING PHYSICIAN: Royce Nuno MD. REQUESTING PHYSICIAN: Wesley Gurrola M.D. HISTORY OF PRESENT ILLNESS: This is a 61-year-old man with history of substance abuse and several recent hospitalizations related to withdrawal seizure activity and now presented with exacerbation of seizures. According to paramedics, ambulance was called to the scene after the patient had a generalized seizure lasting 30 seconds. They found him oriented x2. [place] Coma Scale of 14. He was confused. His friends at the scene was describing patient was sitting while he developed seizures. They also informed that the patient was on crystal meth for the last two days. The patient become fully awake en route to the hospital. Denying chest pain. No shortness of breath. No evidence of trauma. The patient endorsed having alcohol last night but denies using drugs. The patient stated that he has no recollection of loss of consciousness. He just "woke up." He denies headache, trauma, nausea, vomiting. While in the emergency department, the patient had recurrent seizure. His vital signs were stable. He was afebrile. EKG was obtained, which was nonischemic. The patient was given IM Ativan in the emergency department and he was loaded with Keppra. EKG remained normal sinus rhythm. No premature ventricular contractions. His initial laboratory work included CBC study with WBC 13.2. Chemistry panel with anion gap of 23, creatinine 1.8, glucose 114, and total protein of 8.9. Toxicology panel positive for cocaine. His vital signs remained stable with no fever. The patient was seen at this hospital one month ago when he described using alcohol and cocaine with positive toxicology panel. The patient was also observed at that time generalized clonic-tonic seizure episode. CAT scan of the brain revealed chronic small vessel disease. No evidence of acute abnormalities. The patient was treated with Librium, thiamine, and started on Keppra. As he stabilized, he was discharged home. PAST MEDICAL HISTORY: History of substance abuse, nicotine dependent, recurrent seizures all appears to be part of alcohol withdrawal. MEDICATIONS: Treatment prior to admission included Lamictal 200 mg daily and Keppra 500 mg, it is not clear if the patient took those medications. Need for Lamictal not clarified, with possible for evidence of bipolar disorder. ALLERGIES: None reported. SOCIAL HISTORY: Reported lives with fiance. REVIEW OF SYMPTOMS: Unable to obtain due the patient's status who is now very lethargic. PHYSICAL EXAMINATION: GENERAL: A well-developed and well-nourished man, found to be lying in bed asleep, snoring. VITAL SIGNS: Remained stable. Blood pressure 117/67, heart rate of 91. HEENT: Head is normocephalic. No evidence of trauma noted. EXTREMITIES: Upper and lower extremities without clubbing cyanosis or edema. Peripheral pulses 1+ symmetric. MENTAL STATUS: The patient is lethargic, mumbling incoherently or at times appears he does not want to be awakened. CRANIAL NERVES II: Pupils both responding to light and accommodation. Extraocular movement full range. CRANIAL NERVES V: Normal corneal responses. CRANIAL NERVE VII: No asymmetry noted. CRANIAL NERVES IX TO XII: Within normal limit. Positive gag. MOTOR EXAMINATION: Able to move arms and legs against the gravity, but was not following commands. Deep tendon reflexes depressed bilaterally. Plantar response is mute. SENSORY: Withdrawing when simulated with a pin arms and legs. Gait not tested. IMPRESSION: 1. Substance abuse. 2. Alcohol withdrawal seizure activity. 3. Rule out underlying psychiatric disorder. 4. Depression and anxiety. RECOMMENDATION: The patient will be placed on a thiamine, folate, and normal saline. Continue with Keppra 500 mg. Continue with Lamictal 200 mg daily. Observe for any paroxysmal events. We will reassess in the morning. Thank you for allowing me this interesting patient in neurological consultation. Royce Nuno M.D. DR: Neel JOB#: [id number] CC:
[2017-02-15 23:50] VITALS: BP 103/62
--- NOTE | 2017-02-16 03:45 | History and Physical Report ---
DATE OF ADMISSION: 02/15/2017 REASON FOR ADMISSION: Seizure. HISTORY OF PRESENT ILLNESS: This is a 61-year-old male with a history of substance abuse and recurring hospitalizations related to withdrawal seizures. He presents to the emergency room early this morning with same. Paramedics were summoned to the scene where general anesthesia was noted. The patient was confused. The patient has been using crystal meth for the last two days and this was confirmed on his substance abuse panel. The patient was awake and alert upon arrival to the emergency room without any complaints of chest pain or shortness of breath. No headache. The patient denies substance abuse, but states that he was drinking last night. He has no recollection of seizures or loss of consciousness. The patient was given Keppra and Ativan in the emergency room. PAST MEDICAL HISTORY: Otherwise unremarkable. SOCIAL HISTORY: Substance abuse. Alcohol abuse. Nicotine dependent. MEDICATIONS: Lamictal and Keppra, compliance not clear. ALLERGIES: None. FAMILY HISTORY: Noncontributory. REVIEW OF SYSTEMS: Otherwise unremarkable. PHYSICAL EXAMINATION: VITAL SIGNS: Blood pressure 117/67, pulse 91, respirations 18, and temperature 97.6. HEENT: No head trauma. Conjunctivae are pink. Oropharynx clear. NECK: Supple. LUNGS: Clear. CARDIAC: Regular. Normal S1, S2 with no murmur. ABDOMEN: Soft. EXTREMITIES: No edema. The patient withdraws to pain. He is alert and responsive, but has a very short attention span due to somnolence. DIAGNOSTIC DATA: EKG with sinus rhythm and nonspecific ST change. IMPRESSION: 1. Substance abuse. 2. Withdrawal seizure activity. 3. Possible psychiatric disorder. 4. No signs of acute cardiovascular instability. PLAN: 1. Seizure precautions. 2. Hydration. 3. Vitamin supplementation. 4. Continue Keppra and Lamictal. 5. We will need to continue efforts at drug rehabilitation. Wesley Gurrola M.D. DR: JOHNATHAN JOB#: [id number] CC:
[2017-02-16 08:00] VITALS: BP 106/68
[2017-02-16] MEDS ORDERED: Thiamine 100mg tab ORAL SCH (09:00)
[2017-02-16] MEDS ORDERED: LAMICTAL200 MG ORAL (11:01)
[2017-02-16] MEDS ORDERED: Tubing IV Secondary IV ONE (11:44)
[2017-02-16 12:00] VITALS: BP 113/68
--- NOTE | 2017-02-23 12:09 | Discharge Summary ---
Discharge Summary Hospital Course Date of Admission Feb 15, 2017 at 10:25 Date of Discharge Feb 16, 2017 at 11:45 Admitting Diagnosis SEIZURE HPI Nehal Cervantes is a 61 year old male who was admitted on Feb 15, 2017 at 10:25 for Seizure Hospital Course [id number] Discharge Discharge Disposition Patient was discharged to Home (01) Discharge Diagnoses: Colleen Fuchs NP Feb 23, 2017 12:09
--- NOTE | 2017-02-23 21:30 | Discharge Summary 2 SIG ---
DATE OF ADMISSION: 02/15/2017 DATE OF DISCHARGE: 02/16/2017 SKIVER HEEL TAP: Royce Nuno M.D. BRIEF HOSPITAL COURSE: The patient is a 61-year-old male with history of substance abuse and recurrent hospitalizations related to withdrawal seizures. He presented to the emergency room for seizure. Paramedics were summoned. The patient was confused. He has been using crystal meth for the past two days. On arrival to ED, the patient was awake however had additional seizures while in the ED. There was no focal neuro deficits noted. He was initially started on Keppra. Blood work done showed leukocytosis with elevated anion gap likely due to seizure. He was admitted to telemetry for withdrawal seizure activities and was placed on seizure precautions with neuro checks. He was given IV hydration and was seen by a neurologist. EKG remained in normal sinus rhythm with no premature ventricular contractions. Toxicology panel was positive for cocaine. His recent CAT scan revealed chronic small vessel disease with no evidence of acute abnormalities. He was given thiamine, folate and NS and was continued on Keppra 500 mg and Lamictal 200 mg daily. There have been no further seizure outbreaks and patient was eventually discharged home. FINAL DIAGNOSES: 1. Substance abuse. 2. Withdrawal seizure activity. 3. Possible psychiatric disorder. 4. No signs of acute cardiovascular instability. DISPOSITION: The patient was discharged home. DISCHARGE MEDICATIONS: Lamictal 200 mg daily and Keppra 500 mg q.12 h. DISCHARGE INSTRUCTIONS: The patient was advised to follow up with PMD in a week. Wesley Gurrola M.D. I have been assigned to dictate discharge summary on this account and I was not involved in the patient's management. Colleen Fuchs N.P. DR: WILLIE JOB#: [id number] CC:
--- NOTE | 2017-02-25 16:31 | Cardiology Report ---
APPROVED REPORT EKG Measurement Heart [id number] Normal sinus rhythm Prolonged QT Abnormal ECG
== END 2017-02-16 11:45 | disposition home or self-care (01) | DRG 774 ==
LOC: EDBD 08:49 → EMR 09:21 → EDBEDREQ 10:22 → 2E 10:25
DX: F10.239 Alcohol dependence with withdrawal, unspecified (principal); F14.10 Cocaine abuse, uncomplicated; N17.9 Acute kidney failure, unspecified; G40.509 Epileptic seizures related to external causes, not intractable, without status epilepticus; F15.10 Other stimulant abuse, uncomplicated; F17.200 Nicotine dependence, unspecified, uncomplicated; F41.8 Other specified anxiety disorders
CPT/HCPCS: 36415; 80053; 80185; 80299; 80307; 80329; 82310; 83735; 84100; 84484; 85025; 93005; 99285